=== PATIENT | female | born 1955 | race Caucasian/White ===

== ENCOUNTER 2021-08-27 16:01 | Inpatient (IN) | payer MEDICARE, MEDICAID ==
[~2021-08-27] VITALS: Ht 172.7 cm; Wt 128.8 kg
[2021-08-27] MEDS ORDERED: MORPHINE SULFATE 2 MG/ML INJ. IV/SQ PRN (16:30)
[2021-08-27] MEDS ORDERED: MORPHINE SULFATE 4 MG/ML INJ. IV/SQ PRN (16:30)
[2021-08-27 17:08] LABS: BARBITURATES NEG (NEG); BENZODIAZEPINES NEG (NEG); CANNABINOIDS NEG (NEG); COCAINE NEG (NEG); METHADONE NEG (NEG); OPIATES NEG (NEG); PHENCYCLIDINE NEG (NEG)
[2021-08-27 17:09] LABS: AMPHETAMINE/METHAMPHETAMINE NEG (NEG)
--- NOTE | 2021-08-27 17:15 | RAD ---
EXAM: Chest, single view. HISTORY: Fall. COMPARISON: 08/14/2021. FINDINGS: A frontal view of the chest is obtained. There are chronic appearing interstitial changes. There is cardiomegaly. There is no consolidation, pleural effusion or pneumothorax. IMPRESSION: Chronic appearing diffuse interstitial prominence and stable cardiomegaly. Electronically signed by: Corin Hussein MD (08/27/2021 5:12 PM) [id number]
[2021-08-27 17:26] LABS: BACTERIA,URINE FEW /HPF (0-FEW); YEAST,URINE PRESENT /HPF
[2021-08-27 17:32] LABS: BASO # 0.1 x10^3/uL (0.0-0.2); BASO % 0 % (0-3); EOS # 0.1 x10^3/uL (0.0-0.7); EOS % 1 % (0-3); HEMATOCRIT 41.6 % (36.0-47.0); HEMOGLOBIN 13.4 g/dL (12.0-15.5); LYMPH # 0.7 x10^3/uL (1.0-4.8); LYMPH % 4 % (24-48); MEAN CORPUSCULAR HEMOGLOBIN 27 pg (25-35); MEAN CORPUSCULAR HGB CONC 32 g/dL (31-37); MEAN CORPUSCULAR VOLUME 82 fL (79-100); MONO % 6 % (0-9); NEUT # 13.4 x10^3/uL (1.8-7.7); NEUT % 88 % (31-73); PLATELET COUNT 345 x10^3/uL (140-400); RED BLOOD COUNT 5.04 x10^6/uL (3.50-5.40); RED CELL DISTRIBUTION WIDTH 17.8 % (11.5-14.5); WHITE BLOOD COUNT 15.2 x10^3/uL (4.0-11.0)
[2021-08-27 17:43] LABS: PROTHROMBIN TIME PATIENT 16.3 SEC (11.7-14.0)
[2021-08-27 18:10] LABS: % LYMPHS 10 % (24-48); % MONOS 1 % (0-10); % SEGS 89 % (35-66)
[2021-08-27 18:12] LABS: PLT ESTIMATE ADEQUATE (ADEQUATE)
[2021-08-27 18:13] LABS: ANISOCYTOSIS SLIGHT; BURR CELLS PRESENT
[2021-08-27 19:45] LABS: CALCIUM 8.9 mg/dL (8.5-10.1); CREATININE 1.1 mg/dL (0.6-1.0); GFR 49.4; POTASSIUM 3.7 mmol/L (3.5-5.1)
[2021-08-27 19:53] LABS: ALBUMIN 1.8 g/dL (3.4-5.0); ALBUMIN/GLOBULIN RATIO 0.4 (1.0-1.7); MAGNESIUM 2.1 mg/dL (1.8-2.4); TOTAL BILIRUBIN 1.2 mg/dL (0.2-1.0); TOTAL PROTEIN 6.4 g/dL (6.4-8.2)
[2021-08-27] MEDS ORDERED: ONDANSETRON PF 4 MG/2 ML VIAL. IVP PRN ×2 (20:30)
[2021-08-27] MEDS ORDERED: IV NORMAL SALINE 1000ML BAG 1,000 ML IV ONE ×2 (20:30)
[2021-08-27] MEDS ORDERED: MORPHINE SULFATE 2 MG/ML INJ. IVP PRN (20:30)
[2021-08-27] MEDS ORDERED: ACETAMINOPHEN 325 MG TABLET. PO PRN (20:30)
[2021-08-27] MEDS ORDERED: fentaNYL PF VIAL 100 MCG/2 ML VIAL IVP PRN (20:30)
[2021-08-27] MEDS ORDERED: cefTRIAXone IV Push 1 GM VIAL. IVP ONE (21:00)
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
[2021-08-27 22:20] VITALS: BP 121/45
[2021-08-27] MEDS ORDERED: DEXTROSE 50% 25 GM / 50ML DISP.SYRIN. IV PRN (23:00)
[2021-08-27] MEDS ORDERED: VANCOMYCIN 1.75 GM in IV NORMAL SALINE 500ML BAG 500 ML IV ONE (23:15)
--- NOTE | 2021-08-27 23:28 | PDOC1 ---
History and Physical Date of Admission Date of Admission DATE: 08/27/21 TIME: 22:59 Identification/Chief Complaint Chief Complaint Unable to care for self Source Source: Chart review, Patient History of Present Illness History of Present Illness Ms Hester is a 66yo female with PMHx morbid obesity and progressive ambulatory difficulties and recent hospital stay with left hip wound and sacral wound who comes from her sister's home via EMS. Patient states she has been on the floor at her sisters house for 3 days unable to get up and defecated on herself and did not empty her hassan catheter bag. Per nursing staff a tick was removed from abdominal wall prior to my examination. No rash at bite site noted According to patient she recently moved from [place], [place] at the end of 2020, where she was being treated for above wounds at [facility] and notes she asked her sister to take her out of the SNF to stay with her in July and she was admitted, unable to care for herself and recommended SNF and returned home into the care of her sister Chest radiograph with mild interstitial opacities, CT head and neck with no acute hemorrhage, CT spine with no acute fractures. Labs with WBC 15.2, Hb 13.4, platelets 345, CK 866, Cr 1.1, albumin 1.8 Past Medical History Endocrine: Diabetes Past Surgical History Past Surgical History Significant for lymph node excision from the right side of the neck, benign Family History Family History: Hypertension Social History Smoke: No ALCOHOL: none Drugs: None Current Medications Current Medications Current Medications Morphine Sulfate (Morphine Sulfate) 4 mg PRN Q15MIN PRN IV/SQ PAIN GREATER THAN 3/10; Start 08/27/21 at 16:30; Stop 08/27/21 at 20:26; Status DC Morphine Sulfate (Morphine Sulfate) 2 mg PRN Q15MIN PRN IV/SQ PAIN GREATER THAN 3/10; Start 08/27/21 at 16:30; Stop 08/27/21 at 20:26; Status DC Ondansetron HCl (Zofran) 4 mg PRN Q4HRS PRN IVP NAUSEA/VOMITING; Start 08/27/21 at 20:30; Stop 08/27/21 at 20:25; Status DC Acetaminophen (Tylenol) 650 mg PRN Q6HRS PRN PO MILD PAIN / TEMP > 100.3'F; Start 08/27/21 at 20:30 Fentanyl Citrate (Fentanyl 2ml Vial) 25 mcg PRN Q3HRS PRN IVP SEVERE PAIN 7-10; Start 08/27/21 at 20:30 Tramadol HCl (Ultram) 50 mg PRN Q6HRS PRN PO MODERATE PAIN; Start 08/27/21 at 20:30 Ondansetron HCl (Zofran) 4 mg PRN Q8HRS PRN IVP NAUSEA/VOMITING; Start 08/27/21 at 20:30; Stop 08/28/21 at 20:29 Morphine Sulfate (Morphine Sulfate) 2 mg PRN Q2HR PRN IVP PAIN; Start 08/27/21 at 20:30; Stop 08/28/21 at 20:29 Acetaminophen (Tylenol) 650 mg PRN Q4HRS PRN PO FEVER > 100.3'F; Start 08/27/21 at 20:30; Stop 08/27/21 at 20:25; Status DC Ceftriaxone Sodium (Rocephin) 1 gm 1X ONCE IVP ; Start 08/27/21 at 21:00; Stop 08/27/21 at 21:01; Status DC Sodium Chloride 1,000 ml @ 1,000 mls/hr 1X ONCE IV ; Start 08/27/21 at 20:30; Stop 08/27/21 at 21:29; Status DC Sodium Chloride 1,000 ml @ 1,000 mls/hr 1X ONCE IV ; Start 08/27/21 at 20:30; Stop 08/27/21 at 21:29; Status DC Allergies Allergies: Coded Allergies: No Known Drug Allergies (Unverified , 08/27/21) ROS General: YES: Fatigue, Malaise; No: Chills, Night Sweats, Appetite, Other PSYCHOLOGICAL ROS: YES: Anxiety, Depression; No: Behavioral Disorder, Concentration difficultie, Decreased libido, Disorientation, Hallucinations, Hostility, Irritablity, Memory difficulties, Mood Swings, Obsessive thoughts, Physical abuse, Sexual abuse, Sleep d isturbances, Suicidal ideation, Other Eyes: No Blurry vision, No Decreased vision, No Double vision, No Dry eyes, No Excessive tearing, No Eye Pain, No Itchy Eyes, No Loss of vision, No Photophobia, No Scotomata, No Uses contacts, No Uses glasses, No Other HEENT: No: Heacaches, Visual Changes, Hearing change, Nasal congestion, Nasal discharge, Oral lesions, Sinus pain, Sore Throat, Epistaxis, Sneezing, Snoring, Tinnitus, Vertigo, Vocal changes, Other ALLERGY AND IMMUNOLOGY: No: Hives, Insect Bite Sensitivity, Itchy/Watery Eyes, Nasal Congestion, Post Nasal Drip, Seasonal Allergies, Other Hematological and Lymphatic: No: Bleeding Problems, Blood Clots, Blood Transfusions, Brusing, Night Sweats, Pallor, Swollen Lymph Nodes, Other ENDOCRINE: No: Breast Changes, Galactorrhea, Hair Pattern Changes, Hot Flashes, Malaise/lethargy, Mood Swings, Palpitations, Polydipsia/polyuria, Skin Changes, Temperature Intolerance, Unexpected Weight Changes, Other Breast: No New/Changing Breast Lumps, No Nipple changes, No Nipple discharge, No Other Respiratory: No: Cough, Hemoptysis, Orthopnea, Pleuritic Pain, Shortness of breath, SOB with excertion, Sputum Changes, Stridor, Tachypnea, Wheezing, Other Cardiovascular: No Chest Pain, No Palpitations, No Orthopnea, No Paroxysmal Noc. Dyspnea, No Edema, No Lt Headedness, No Other Gastrointestinal: No Nausea, No Vomiting, No Abdominal Pain, No Diarrhea, No Constipation, No Melena, No Hematochezia, No Other Genitourinary: No Dysuria, No Frequency, No Incontinence, No Hematuria, No Retention, No Discharge, No Urgency, No Pain, No Flank Pain, No Other, No , No , No , No , No , No , No Musculoskeletal: Yes Gait Disturbance, Yes Muscular Weakness; No Joint Pain, No Joint Stiffness, No Joint Swelling, No Muscle Pain, No Pain In:, No Swelling In:, No Other Neurological: No Behavorial Changes, No Bowel/Bladder ControlChng, No Confusion, No Dizziness, No Gait Disturbance, No Headaches, No Impaired Coord/balance, No Memory Loss, No Numbness/Tingling, No Seizures, No Speech Problems, No Tremors, No Visual Changes, No Weakness, No Other Skin: No Dry Skin, No Eczema, No Hair Changes, No Lumps, No Mole Changes, No Mottling, No Nail Changes, No Pruritus, No Rash, No Skin Lesion Changes, No Other, No Acne Physical Exam General: Alert, Oriented X3, Cooperative, mild distress HEENT: Atraumatic, PERRLA, EOMI, Mucous membr. moist/pink Lungs: Clear to auscultation, Normal air movement Heart: S1S2, RRR, no thrills, no rubs, no gallops, no murmurs Abdomen: Normal bowel sounds, Soft, No tenderness, No hepatosplenomegaly, No masses Extremities: No clubbing, No cyanosis Skin: Other (right leg some redness, not warm, left hip with ulcer and gluteal ulcer unstageable at least 8cm) Neuro: Normal tone, Cranial nerves 3-12 NL, Reflexes 2+ Psych/Mental Status: Other (Depressed) Vitals Vitals Vital Signs Date Time Temp Pulse Resp B/P (MAP) Pulse Ox O2 Delivery O2 Flow Rate FiO2 08/27/21 22:20 97.8 105 22 121/45 (70) 90 Nasal Cannula 2.0 97.8 Labs Labs Laboratory Tests Test 08/27/21 16:50 08/27/21 17:20 08/27/21 18:37 08/27/21 21:40 Urine Collection Type Unknown Urine Color (Auto) Yellow Urine Turbidity Clear Urine pH (Auto) 6.0 (<5.0-8.0) Urine Specific [place] 1.023 (1.000-1.030) Urine Protein (Auto) 50 mg/dL (Negative) Urine Glucose (Auto)(UA) Negative mg/dL (Negative) Urine Ketones (Auto) 40 mg/dL (Negative) Urine Blood (Auto) Small (Negative) Urine Nitrite Negative (Negative) Urine Bilirubin (Auto) Small (Negative) Urine Urobilinogen (Auto) 2 mg/dL (Normal) Urine Leukocyte Esterase (Auto) Small (Negative) Urine RBC 3-5 /HPF (0-2) Urine WBC 5-10 /HPF (0-4) Urine Squamous Epithelial Cells Few /LPF Urine Bacteria Few /HPF (0-FEW) Urine Mucus Slight /LPF Urine Yeast Present /HPF Urine Opiates Screen Neg (NEG) Urine Methadone Screen Neg (NEG) Urine Barbiturates Neg (NEG) Urine Phencyclidine Screen Neg (NEG) Urine Amphetamine/Methamphetamine Neg (NEG) Urine Benzodiazepines Screen Neg (NEG) Urine Cocaine Screen Neg (NEG) Urine Cannabinoids Screen Neg (NEG) Urine Ethyl Alcohol Neg (NEG) White Blood Count 15.2 x10^3/uL (4.0-11.0) Red Blood Count 5.04 x10^6/uL (3.50-5.40) Hemoglobin 13.4 g/dL (12.0-15.5) Hematocrit 41.6 % (36.0-47.0) Mean Corpuscular Volume 82 fL (79-100) Mean Corpuscular Hemoglobin 27 pg (25-35) Mean Corpuscular Hemoglobin Concent 32 g/dL (31-37) Red Cell Distribution Width 17.8 % (11.5-14.5) Platelet Count 345 x10^3/uL (140-400) Neutrophils (%) (Auto) 88 % (31-73) Lymphocytes (%) (Auto) 4 % (24-48) Monocytes (%) (Auto) 6 % (0-9) Eosinophils (%) (Auto) 1 % (0-3) Basophils (%) (Auto) 0 % (0-3) Neutrophils # (Auto) 13.4 x10^3/uL (1.8-7.7) Lymphocytes # (Auto) 0.7 x10^3/uL (1.0-4.8) Monocytes # (Auto) 1.0 x10^3/uL (0.0-1.1) Eosinophils # (Auto) 0.1 x10^3/uL (0.0-0.7) Basophils # (Auto) 0.1 x10^3/uL (0.0-0.2) Segmented Neutrophils % 89 % (35-66) Lymphocytes % 10 % (24-48) Monocytes % 1 % (0-10) Platelet Estimate Adequate (ADEQUATE) Anisocytosis Slight [place] Cells Present Prothrombin Time 16.3 SEC (11.7-14.0) Prothromb Time International Ratio 1.4 (0.8-1.1) Activated Partial Thromboplast Time 34 SEC (24-38) Lactic Acid Level 1.4 mmol/L (0.4-2.0) Sodium Level 143 mmol/L (136-145) Potassium Level 3.7 mmol/L (3.5-5.1) Chloride Level 104 mmol/L (98-107) Carbon Dioxide Level 30 mmol/L (21-32) Anion Gap 9 (6-14) Blood Urea Nitrogen 25 mg/dL (7-20) Creatinine 1.1 mg/dL (0.6-1.0) Estimated GFR (Cockcroft-Gault) 49.4 BUN/Creatinine Ratio 23 (6-20) Glucose Level 158 mg/dL (70-99) Calcium Level 8.9 mg/dL (8.5-10.1) Magnesium Level 2.1 mg/dL (1.8-2.4) Total Bilirubin 1.2 mg/dL (0.2-1.0) Aspartate Amino Transf (AST/SGOT) 48 U/L (15-37) Alanine Aminotransferase (ALT/SGPT) 25 U/L (14-59) Alkaline Phosphatase 98 U/L (46-116) Creatine Kinase 866 U/L (26-192) Creatine Kinase MB (Mass) 5.3 ng/mL (0.0-3.6) Creatine Kinase MB Relative Index 0.6 % (0-4) Troponin I High Sensitivity 20 ng/L (4-50) 21 ng/L (4-50) LX-[id number]-W-Type Natriuretic Peptide 1332 pg/mL (0-124) Total Protein 6.4 g/dL (6.4-8.2) Albumin 1.8 g/dL (3.4-5.0) Albumin/Globulin Ratio 0.4 (1.0-1.7) Procalcitonin 0.30 ng/mL (0.00-0.10) Laboratory Tests Test 08/27/21 16:50 08/27/21 17:20 08/27/21 18:37 08/27/21 21:40 Urine Collection Type Unknown Urine Color (Auto) Yellow Urine Turbidity Clear Urine pH (Auto) 6.0 (<5.0-8.0) Urine Specific [place] 1.023 (1.000-1.030) Urine Protein (Auto) 50 mg/dL (Negative) Urine Glucose (Auto)(UA) Negative mg/dL (Negative) Urine Ketones (Auto) 40 mg/dL (Negative) Urine Blood (Auto) Small (Negative) Urine Nitrite Negative (Negative) Urine Bilirubin (Auto) Small (Negative) Urine Urobilinogen (Auto) 2 mg/dL (Normal) Urine Leukocyte Esterase (Auto) Small (Negative) Urine RBC 3-5 /HPF (0-2) Urine WBC 5-10 /HPF (0-4) Urine Squamous Epithelial Cells Few /LPF Urine Bacteria Few /HPF (0-FEW) Urine Mucus Slight /LPF Urine Yeast Present /HPF Urine Opiates Screen Neg (NEG) Urine Methadone Screen Neg (NEG) Urine Barbiturates Neg (NEG) Urine Phencyclidine Screen Neg (NEG) Urine Amphetamine/Methamphetamine Neg (NEG) Urine Benzodiazepines Screen Neg (NEG) Urine Cocaine Screen Neg (NEG) Urine Cannabinoids Screen Neg (NEG) Urine Ethyl Alcohol Neg (NEG) White Blood Count 15.2 x10^3/uL (4.0-11.0) Red Blood Count 5.04 x10^6/uL (3.50-5.40) Hemoglobin 13.4 g/dL (12.0-15.5) Hematocrit 41.6 % (36.0-47.0) Mean Corpuscular Volume 82 fL (79-100) Mean Corpuscular Hemoglobin 27 pg (25-35) Mean Corpuscular Hemoglobin Concent 32 g/dL (31-37) Red Cell Distribution Width 17.8 % (11.5-14.5) Platelet Count 345 x10^3/uL (140-400) Neutrophils (%) (Auto) 88 % (31-73) Lymphocytes (%) (Auto) 4 % (24-48) Monocytes (%) (Auto) 6 % (0-9) Eosinophils (%) (Auto) 1 % (0-3) Basophils (%) (Auto) 0 % (0-3) Neutrophils # (Auto) 13.4 x10^3/uL (1.8-7.7) Lymphocytes # (Auto) 0.7 x10^3/uL (1.0-4.8) Monocytes # (Auto) 1.0 x10^3/uL (0.0-1.1) Eosinophils # (Auto) 0.1 x10^3/uL (0.0-0.7) Basophils # (Auto) 0.1 x10^3/uL (0.0-0.2) Segmented Neutrophils % 89 % (35-66) Lymphocytes % 10 % (24-48) Monocytes % 1 % (0-10) Platelet Estimate Adequate (ADEQUATE) Anisocytosis Slight [place] Cells Present Prothrombin Time 16.3 SEC (11.7-14.0) Prothromb Time International Ratio 1.4 (0.8-1.1) Activated Partial Thromboplast Time 34 SEC (24-38) Lactic Acid Level 1.4 mmol/L (0.4-2.0) Sodium Level 143 mmol/L (136-145) Potassium Level 3.7 mmol/L (3.5-5.1) Chloride Level 104 mmol/L (98-107) Carbon Dioxide Level 30 mmol/L (21-32) Anion Gap 9 (6-14) Blood Urea Nitrogen 25 mg/dL (7-20) Creatinine 1.1 mg/dL (0.6-1.0) Estimated GFR (Cockcroft-Gault) 49.4 BUN/Creatinine Ratio 23 (6-20) Glucose Level 158 mg/dL (70-99) Calcium Level 8.9 mg/dL (8.5-10.1) Magnesium Level 2.1 mg/dL (1.8-2.4) Total Bilirubin 1.2 mg/dL (0.2-1.0) Aspartate Amino Transf (AST/SGOT) 48 U/L (15-37) Alanine Aminotransferase (ALT/SGPT) 25 U/L (14-59) Alkaline Phosphatase 98 U/L (46-116) Creatine Kinase 866 U/L (26-192) Creatine Kinase MB (Mass) 5.3 ng/mL (0.0-3.6) Creatine Kinase MB Relative Index 0.6 % (0-4) Troponin I High Sensitivity 20 ng/L (4-50) 21 ng/L (4-50) WC-Fyh-P-Type Natriuretic Peptide 1332 pg/mL (0-124) Total Protein 6.4 g/dL (6.4-8.2) Albumin 1.8 g/dL (3.4-5.0) Albumin/Globulin Ratio 0.4 (1.0-1.7) Procalcitonin 0.30 ng/mL (0.00-0.10) VTE Prophylaxis Ordered VTE Prophylaxis Devices: No VTE Pharmacological Prophylaxi: Yes Assessment/Plan Assessment/Plan Unable to walk - could not get up off floor Unable to care for self - cannot meet basic toileting needs. Counseled that return to SNF for rehabilitation is appropriate Gluteal ulcer - will consult the wound care team. Will place on unasyn, vancomycin, f/u cultures Chronic indwelling hassan - replace. Should keep in place given the extent of her wounds and her self described incontinence when she does not have a catheter SIRS - with above likely source of sepsis, will cont empiric antibiotics Severe protein calorie malnutrition - may have some element of liver injury due to malnourishment Morbid obesity - due to physical deconditioning. Patient denies any history of MS or other comorbidities Transaminitis - with elevated INR, low albumin may have NAFLD/BOOTHE Hyperglycemia - previously given insulin, will check A1c. FEN - ADA diet PPX - lovenox FULL CODE Dispo - needs SNF, likely 11/11 care Justifications for Admission Other Justification TAZ CONTRERAS MD August 27, 2021 23:28
[2021-08-27] MEDS ORDERED: VANCOMYCIN 2 GM in IV NORMAL SALINE 500ML BAG 500 ML IV ONE (23:30)
[2021-08-27] MEDS: AMPICILLIN/SULBACTAM 3 GM in IV NORMAL SALINE 100ML 100 ML IV SCH (23:35)
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
[2021-08-28 02:53] LABS: BASO % 1 % (0-3); EOS # 0.2 x10^3/uL (0.0-0.7); EOS % 2 % (0-3); HEMATOCRIT 36.9 % (36.0-47.0); HEMOGLOBIN 11.7 g/dL (12.0-15.5); LYMPH # 0.8 x10^3/uL (1.0-4.8); LYMPH % 8 % (24-48); MEAN CORPUSCULAR HEMOGLOBIN 26 pg (25-35); MEAN CORPUSCULAR HGB CONC 32 g/dL (31-37); MEAN CORPUSCULAR VOLUME 83 fL (79-100); MONO # 0.7 x10^3/uL (0.0-1.1); MONO % 7 % (0-9); NEUT # 8.3 x10^3/uL (1.8-7.7); NEUT % 83 % (31-73); PLATELET COUNT 284 x10^3/uL (140-400); RED BLOOD COUNT 4.46 x10^6/uL (3.50-5.40); RED CELL DISTRIBUTION WIDTH 17.3 % (11.5-14.5)
[2021-08-28] MEDS: VANCOMYCIN PER PHARMACY MC PRN ×2 (02:56→11:17)
--- NOTE | 2021-08-28 02:56 | NUR ---
Pharmacy Vancomycin Dosing Note S:Consulted to monitor and dose vancomycin started 08/28/21. O:ISABELLA OCAMPO is a 66 year old F with Sepsis UTI GLUTEAL ULCER . Height: 5 feet, 8 inches Weight: 129.2 kg [place] Body Weight: 63.90 Adjusted Body Weight: 90.02 Dosing Weight: Actual Other Antibiotics: LABS: Last BUN: 25 Last Creatinine: 1.1 Creatinine Clearance: 69 mL/min Last WBC: 15.2 Last Procalcitonin: Tmax (past 24 hours): Microbiology: I/O: Drug Levels: Last level: on at Last dose given 08/28/21 at 0140 Vancomycin Dosing: Loading Dose: 2000 mg x1 Dosing Weight: Actual Target Trough: 15-20 A: Based on: WT AND CRCL P: 1. Begin Vancomycin 1750 mg IV q12h 2. Follow up Trough level on 08/29/21 at 1330 3. Pharmacy will continue to monitor, follow and adjust therapy as needed. IVON CASTILLO RPH, 08/28/21 0256 Signed: 08/28/21 at 0256 by IVON CASTILLO RPH PHA
[2021-08-28 03:00] VITALS: BP 113/46
[2021-08-28 03:11] LABS: ALBUMIN 1.6 g/dL (3.4-5.0); ALBUMIN/GLOBULIN RATIO 0.5 (1.0-1.7); CALCIUM 7.9 mg/dL (8.5-10.1); GFR 55.1; POTASSIUM 3.5 mmol/L (3.5-5.1); TOTAL BILIRUBIN 1.1 mg/dL (0.2-1.0); TOTAL PROTEIN 4.9 g/dL (6.4-8.2)
[2021-08-28] MEDS: AMPICILLIN/SULBACTAM 3 GM in IV NORMAL SALINE 100ML 100 ML IV SCH ×3 (06:05→19:32)
[2021-08-28] MEDS: HEPARIN for SUB-Q USE 5,000 UNIT/ML VIAL. SQ SCH ×3 (06:10→21:43)
[2021-08-28 07:15] VITALS: BP 109/71
[2021-08-28] MEDS: INSULIN LISPRO 300 UNITS/3 ML VIAL. SQ SCH ×4 (07:30→21:00)
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
--- NOTE | 2021-08-28 10:00 | NUR ---
Received nettie from Herlinda Goel with [employer], calling for report on patient and possible discharge. This RN advised Herlinda that DC arrangements have not yet been finalized, but that patient has voiced desire to go home to [facility] with her daughter, and that patient reports feeling fine today, is in good spirits and denies pain. Advised Herlinda that planner internship will be in touch as discharge plans progress. Herlinda voiced understanding.
[2021-08-28 11:15] VITALS: BP 97/44
--- NOTE | 2021-08-28 12:22 | EKG ---
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
--- NOTE | 2021-08-28 12:22 | RAD ---
Exam: CT thoracic spine without contrast CT lumbar spine without contrast CLINICAL HISTORY: Reason: fall / Spl. Instructions: / History: COMPARISON: None available. TECHNIQUE: This CT study consists of contiguous axial images performed through the thoracic and lumba r spine. Axial, sagittal and coronal reformatted images were also performed. PQRS compliance statement - One or more of the following individualized dose reduction techniques wer e utilized for this study: 1. Automated exposure control 2. Adjustment of the mA and/or kV according to patient size 3. Use of iterative reconstruction technique FINDINGS: Thoracic spine: Vertebral body heights are preserved. Anterior endplate osteophytes at multiple levels. Disc heights are grossly preserved. No spondylolisthesis. Bulky endplate osteophytes are seen. Evaluation of the lungs limited given motion artifact. Lumbar spine: Vertebral body heights are preserved. Disc heights are preserved. No spondylolisthesis. SI joint dege nerative changes are seen. Nonobstructing left renal calculi are partially profiled. Chadwick catheter i s seen within the bladder. No acute fracture. Colonic diverticula are seen. IMPRESSION: 1. No evidence of no acute fracture or subluxation of the thoracic or lumbar spine. 2. Nonobstructing left renal calculi are seen. Electronically signed by: Tom Polk MD (08/27/2021 7:24 PM) YUDY
--- NOTE | 2021-08-28 12:22 | EKG ---
[facility] [address] [place] [address] Test Date: 2021-08-27 Test Time: 17:27:11 Pat Name: ISABELLA OCAMPO Department: Room: [facility] Gender: F Sourcing Intern: : 1955 Requested By: ELENA CAMACHO Order Number: [id number] Reading MD: Parvez Lozada Measurements Intervals [place] Rate: 98 P: 58 PA: 114 QRS: 59 QRSD: 96 T: 26 QT: 360 QTc: 462 Interpretive Statements SINUS RHYTHM ATRIAL PREMATURE COMPLEX(ES) Electronically Signed On 08-29-2021 17:15:04 CDT by Parvez Lozada
--- NOTE | 2021-08-28 12:22 | RAD ---
EXAM: CT HEAD WITHOUT IV CONTRAST CLINICAL HISTORY: Reason: fall / Spl. Instructions: / History: COMPARISON: None. TECHNIQUE: Routine CT of the head without contrast. Soft tissues and bone windows were reviewed. PQRS compliance statement - One or more of the following individualized dose reduction techniques wer e utilized for this study: 1. Automated exposure control 2. Adjustment of the mA and/or kV according to patient size 3. Use of iterative reconstruction technique FINDINGS: There is no evidence of hemorrhage, mass or extra-axial fluid collection. Sears-white differentiation is maintained with no evidence of edema. Rounded lucency right basal gangl ia, possibly prior lacunar infarct or prominent perivascular space. There is no mass effect or shift of the intracranial structures. The ventricles, basilar cisterns and cortical sulci are normal in size and configuration for the brenda ents stated age. Subcortical, periventricular as well as deep white matter foci of hypoattenuation li néstor changes of chronic small vessel disease. The cerebellum and brainstem are unremarkable. The calvarium demonstrates no evidence of fracture or focal lesion. There is normal aeration of the visualized paranasal sinuses and mastoid air cells. The visualized portions of the orbits are normal. IMPRESSION: 1. No evidence for acute intracranial process. 2. Rounded lucency right basal ganglia, possibly prior lacunar infarct or prominent perivascular spa ce. 3. Subcortical, periventricular white matter foci of hypoattenuation likely changes of chronic small vessel disease. EXAM: CT CERVICAL SPINE WITHOUT IV CONTRAST CLINICAL HISTORY: Reason: fall / Spl. Instructions: / History: COMPARISON: None available. TECHNIQUE: Helical CT of the cervical spine was performed. Axial, coronal and sagittal reformatted im ages were also performed. PQRS compliance statement - One or more of the following individualized dose reduction techniques wer e utilized for this study: 1. Automated exposure control 2. Adjustment of the mA and/or kV according to patient size 3. Use of iterative reconstruction technique FINDINGS: Vertebral body heights are preserved. No acute fracture. Mild C5-6, moderate C6-7 and C7-T1 disc heig ht loss. Moderate facet degenerative changes are seen. No spondylolisthesis. Lucent lesion within the sternum is only partially profiled, partially trabeculated. IMPRESSION: 1. No acute cervical spine fracture or subluxation. 2. Multilevel degenerative changes as above. 3. Lucent lesion within the sternum is trabeculated and only partially profiled, may be seen with he mangioma. However if there is a history of primary malignancy, metastatic disease is not excluded. Th is can be further assessed by MRI if clinically indicated. Electronically signed by: Tom Polk MD (08/27/2021 7:13 PM) [facility]
[2021-08-28] MEDS ORDERED: VANCOMYCIN 1.75 GM in IV NORMAL SALINE 500ML BAG 500 ML IV SCH ×2 (14:00→20:00)
[2021-08-28 14:55] VITALS: BP 122/62
[2021-08-28] MEDS: MICAFUNGIN 100 MG in IV NORMAL SALINE 100ML 100 ML IV SCH (17:45)
[2021-08-28 19:25] VITALS: BP 121/50
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
[2021-08-28] MEDS: LACTOBACILLUS RHAMNOSUS GG 1 CAPSULE. PO SCH (21:39)
[2021-08-28 23:13] VITALS: BP 102/53
[2021-08-29] MEDS: AMPICILLIN/SULBACTAM 3 GM in IV NORMAL SALINE 100ML 100 ML IV SCH ×5 (00:45→23:42)
[2021-08-29 03:01] VITALS: BP 106/55
[2021-08-29 05:37] LABS: HEMOGLOBIN A1C 7.3 % (4.8-5.6)
[2021-08-29] MEDS: HEPARIN for SUB-Q USE 5,000 UNIT/ML VIAL. SQ SCH ×3 (06:13→21:34)
[2021-08-29 07:00] VITALS: BP 151/66
[2021-08-29] MEDS: INSULIN LISPRO 300 UNITS/3 ML VIAL. SQ SCH ×4 (07:30→21:00)
[2021-08-29] MEDS: MULTIVITAMIN with MINERAL TABLET. PO SCH (09:00)
[2021-08-29] MEDS: LACTOBACILLUS RHAMNOSUS GG 1 CAPSULE. PO SCH ×2 (09:00→21:31)
[2021-08-29 11:00] VITALS: BP 156/53
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
[2021-08-29] MEDS: ACETAMINOPHEN 325 MG TABLET. PO PRN (11:04)
--- NOTE | 2021-08-29 13:39 | NUR ---
CHUY Sullivan and Dr. Lieberman at bedside to do wound care.
[2021-08-29 13:40] LABS: VANC TR 21.2 mcg/mL (10.0-20.0)
[2021-08-29] MEDS: VANCOMYCIN PER PHARMACY MC PRN (13:57)
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
--- NOTE | 2021-08-29 14:27 | PDOC ---
Infectious Disease Note Subjective: Subjective Patient denies any complaints Wound pain has improved Underwent debridement earlier today Denies any fever, chills, nausea, vomiting, shortness of breath or cough Discussed with nursing staff Vital Signs: Vital Signs Vital Signs Date Time Temp Pulse Resp B/P (MAP) Pulse Ox O2 Delivery O2 Flow Rate FiO2 08/29/21 13:37 Nasal Cannula 2.0 08/29/21 11:00 98.2 68 19 156/53 (87) 92 98.2 Physical Exam: PHYSICAL EXAM GENERAL: Alert, oriented x 3 female, on nasal O2, in no acute distress. HEENT: Normocephalic, atraumatic. Anicteric. LUNGS: Clear. HEART: S1, S2. No murmurs. ABDOMEN: Soft, obese. Bowel sounds present. EXTREMITIES: Redness, excoriation, left hip previous wound well healed. Left gluteal ulcer, unstageable with black eschar, tenderness present. Lower extremity wounds pictures reviewed. NEUROLOGIC: Alert, oriented x 3, grossly nonfocal. Generalized weakness. PSYCHIATRIC: Depressed, not anxious, calm, cooperative. Medications: Inpatient Meds: Medications reviewed. Labs: Lab Laboratory Tests Test 08/28/21 16:56 08/28/21 21:26 08/29/21 07:37 08/29/21 11:03 Glucose (Fingerstick) 97 mg/dL (70-99) 185 mg/dL (70-99) 125 mg/dL (70-99) 186 mg/dL (70-99) Test 08/29/21 13:15 Vancomycin Level Trough 21.2 mcg/mL (10.0-20.0) Vancomycin Last Dose Date 08/29/21 Vancomycin Last Dose Time 0500 Objective: Assessment: 1. Gluteal ulcer likely pressure from inability to get off the floor for 3 days prior to admission, status postdebridement by wound team August 29, 2021 2. Increased CK. Likely from laying on the floor 3 days prior to admission 3. Healed left hip wound 4. Chronic indwelling Chadwick changed with urinary tract infection. 5. The patient had a tick when she arrived to the hospital, which was removed. 6. Obesity. 7. Transaminitis. 8. Diabetes. 9. Protein-calorie malnutrition. 10. Poor living condition. 11. Leukocytosis. Plan: Plan of Care Continue Unasyn,Zyvox,micafungin DC IV Vanco due to high trough She does not have any evidence of tickborne illness at this time clinically Offload. Wound care as directed by wound team. Monitor labs and cultures. Continue supportive care. PIPPA HICKS MD August 29, 2021 14:27
[2021-08-29 15:00] VITALS: BP 140/60
--- NOTE | 2021-08-29 16:52 | NUR ---
Wound/Ostomy Care Wound Type/Assessment: Patient seen per wound care consult. see wound assessment. Patient was seen yesterday for initial assessment. All wounds cleansed, assessed, and measured. Patient had been staying with her sister and had been found at home on the floor for over 3 days. This information has been from the patient only, however due to what has been physically seen and assessed this does coincide with what the patient has stated. The wounds dressed on 08/28/21, see treatment recommendations below. The Patient seen again to today with our consulting physician Dr. Lieberman for assessment and possible bedside debridement if needed of only the left ischium. Wound blackened with soften eschar but appears to be stable, there is a large area of IAD due to urine. Patient agreeable. Patient has an unstageable PU to left ischium, stage I PU with IAD to coccyx/sacral, DTI to left heel and left lower leg, intertrigo to left breasts, and DTI with IAD to the right ischium. Treatment Recommendations/Plan: Dr. Lieberman ordered for Santyl however as of today Santyl is unavailable but pharmacy is going to try to get the Santyl. If unable we will switch back to honey tomorrow and let our physician know, as well as the nurses. Cleanse wounds and pat dry. L ischium: apply medi-honey gel to the contact layer, cover with foam dressing and tape and hydrocolloids around the edge if skin is still broke down. L lat heel and L leg: skin prep and foam dressing. R ischium, sacrum, coccyx: "crusting" skin prep and nystatin powder to area of breakdown Education provided: Patient educated on dressing changes and PU treatment and management. Patient verbalized understanding Offloading surface/device: Patient is currently on a P-500 bed, turn every two hours using wedge. Patient repositioned to left side using wedge. Recommended Referrals/Tests: Wound care and ID following. Dr. Lieberman our wound care physician will follow up on 09/03/21 for reassessment. Discharge Recommendations for dressings: Continue current treatment plan and wound care will follow up on 09/03/21. I will check with pharmacy tomorrow regarding the Santyl situation. Bed lowered and call light in reach. Addendum: 08/29/21 at 1736 by SURY ERNST RN Spoke with Keith in the pharmacy. Tube of Santyl available, manually entered by pharmacist for use starting 08/30/21
[2021-08-29] MEDS: NYSTATIN TOPICAL POWDER 15GM BOTTLE. TP SCH (17:00)
--- NOTE | 2021-08-29 17:05 | NUR ---
Nystatin not applied, wound care had applied.
[2021-08-29] MEDS: MICAFUNGIN 100 MG in IV NORMAL SALINE 100ML 100 ML IV SCH (17:22)
[2021-08-29] MEDS ORDERED: VANCOMYCIN 1.75 GM in IV NORMAL SALINE 500ML BAG 500 ML IV SCH (18:00)
[2021-08-29 19:00] VITALS: BP 139/60
[2021-08-29] MEDS: LINEZOLID 600 MG TABLET PO SCH (21:31)
[2021-08-29 23:00] VITALS: BP 147/64
[2021-08-30 03:00] VITALS: BP 142/61
[2021-08-30] MEDS: AMPICILLIN/SULBACTAM 3 GM in IV NORMAL SALINE 100ML 100 ML IV SCH ×3 (05:37→17:49)
[2021-08-30] MEDS: HEPARIN for SUB-Q USE 5,000 UNIT/ML VIAL. SQ SCH ×3 (05:55→21:54)
[2021-08-30 07:00] VITALS: BP 126/62
[2021-08-30] MEDS: INSULIN LISPRO 300 UNITS/3 ML VIAL. SQ SCH ×4 (07:30→21:00)
[2021-08-30] MEDS: NYSTATIN TOPICAL POWDER 15GM BOTTLE. TP SCH ×2 (09:29→21:00)
[2021-08-30] MEDS: COLLAGENASE 250 UNIT/GM TOPICAL OINTMENT 30GM TUBE. TP SCH (09:29)
[2021-08-30] MEDS: LACTOBACILLUS RHAMNOSUS GG 1 CAPSULE. PO SCH ×2 (09:29→21:47)
[2021-08-30] MEDS: MULTIVITAMIN with MINERAL TABLET. PO SCH (09:29)
[2021-08-30] MEDS: LINEZOLID 600 MG TABLET PO SCH ×2 (09:29→21:47)
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
[2021-08-30 11:00] VITALS: BP 115/51
[2021-08-30 15:00] VITALS: BP 131/52
--- NOTE | 2021-08-30 15:06 | PDOC ---
Infectious Disease Note Subjective: Subjective Patient complains of pain around wounds Vital Signs: Vital Signs Vital Signs Date Time Temp Pulse Resp B/P (MAP) Pulse Ox O2 Delivery O2 Flow Rate FiO2 08/30/21 11:00 98.1 77 18 115/51 (72) 93 Room Air 98.1 08/30/21 08:00 2.0 Physical Exam: PHYSICAL EXAM GENERAL: Alert, oriented x 3 female, on nasal O2, in no acute distress. HEENT: Normocephalic, atraumatic. Anicteric. LUNGS: Clear. HEART: S1, S2. No murmurs. ABDOMEN: Soft, obese. Bowel sounds present. EXTREMITIES: Redness, excoriation, left hip previous wound well healed. Left gluteal ulcer, unstageable with black eschar, tenderness present. Lower extremity wounds pictures reviewed. NEUROLOGIC: Alert, oriented x 3, grossly nonfocal. Generalized weakness. PSYCHIATRIC: Depressed, not anxious, calm, cooperative. Medications: Inpatient Meds: Medications reviewed. Labs: Lab Laboratory Tests Test 08/29/21 15:58 08/29/21 20:59 08/30/21 07:42 08/30/21 11:31 Glucose (Fingerstick) 133 mg/dL (70-99) 173 mg/dL (70-99) 132 mg/dL (70-99) 121 mg/dL (70-99) Objective: Assessment: 1. Gluteal ulcer likely pressure from inability to get off the floor for 3 days prior to admission, status postdebridement by wound team August 29, 2021 2. Increased CK. Likely from laying on the floor 3 days prior to admission 3. Healed left hip wound 4. Chronic indwelling Chadwick changed with urinary tract infection. 5. The patient had a tick when she arrived to the hospital, which was removed. 6. Obesity. 7. Transaminitis. 8. Diabetes. 9. Protein-calorie malnutrition. 10. Poor living condition. 11. Leukocytosis. Plan: Plan of Care Continue Unasyn,Zyvox,micafungin DC IV Vanco due to high trough She does not have any evidence of tickborne illness at this time clinically Offload. Wound care as directed by wound team. Monitor labs and cultures. Continue supportive care. PIPPA HICKS MD August 30, 2021 15:06
[2021-08-30] MEDS: MICAFUNGIN 100 MG in IV NORMAL SALINE 100ML 100 ML IV SCH (17:49)
[2021-08-30 19:00] VITALS: BP 143/65
[2021-08-30 23:00] VITALS: BP 136/67
[2021-08-31] MEDS: AMPICILLIN/SULBACTAM 3 GM in IV NORMAL SALINE 100ML 100 ML IV SCH ×4 (00:15→18:00)
[2021-08-31 03:00] VITALS: BP 143/84
[2021-08-31] MEDS: HEPARIN for SUB-Q USE 5,000 UNIT/ML VIAL. SQ SCH ×3 (05:44→22:30)
[2021-08-31 07:00] VITALS: BP 142/60
[2021-08-31] MEDS: INSULIN LISPRO 300 UNITS/3 ML VIAL. SQ SCH ×4 (07:30→21:00)
[2021-08-31] MEDS: NYSTATIN TOPICAL POWDER 15GM BOTTLE. TP SCH ×2 (09:00→21:00)
[2021-08-31] MEDS: COLLAGENASE 250 UNIT/GM TOPICAL OINTMENT 30GM TUBE. TP SCH (09:00)
[2021-08-31] MEDS: MULTIVITAMIN with MINERAL TABLET. PO SCH (09:02)
[2021-08-31] MEDS: LACTOBACILLUS RHAMNOSUS GG 1 CAPSULE. PO SCH ×2 (09:02→20:58)
[2021-08-31] MEDS: LINEZOLID 600 MG TABLET PO SCH ×2 (09:02→20:58)
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
[2021-08-31 11:00] VITALS: BP_SYST 130; BP_SYST 138; BP_DIAS 54; BP_DIAS 72
--- NOTE | 2021-08-31 12:06 | PDOC ---
Infectious Disease Note Subjective: Subjective Patient complains of pain around wounds Vital Signs: Vital Signs Vital Signs Date Time Temp Pulse Resp B/P (MAP) Pulse Ox O2 Delivery O2 Flow Rate FiO2 08/31/21 11:00 97.8 77 18 130/54 (79) 93 Nasal Cannula 2.0 97.8 Physical Exam: PHYSICAL EXAM GENERAL: Alert, oriented x 3 female, on nasal O2, in no acute distress. HEENT: Normocephalic, atraumatic. Anicteric. LUNGS: Clear. HEART: S1, S2. No murmurs. ABDOMEN: Soft, obese. Bowel sounds present. EXTREMITIES: Redness, excoriation, left hip previous wound well healed. Left gluteal ulcer, unstageable with black eschar, tenderness present. Lower extremity wounds pictures reviewed. NEUROLOGIC: Alert, oriented x 3, grossly nonfocal. Generalized weakness. PSYCHIATRIC: Depressed, not anxious, calm, cooperative. Medications: Inpatient Meds: Medications reviewed. Labs: Lab Laboratory Tests Test 08/30/21 17:33 08/30/21 20:44 08/31/21 08:01 08/31/21 11:38 Glucose (Fingerstick) 144 mg/dL (70-99) 165 mg/dL (70-99) 133 mg/dL (70-99) 129 mg/dL (70-99) Objective: Assessment: 1. Gluteal ulcer likely pressure from inability to get off the floor for 3 days prior to admission, status postdebridement by wound team August 29, 2021 2. Increased CK. Likely from laying on the floor 3 days prior to admission 3. Healed left hip wound 4. Chronic indwelling Chadwick changed with urinary tract infection. 5. The patient had a tick when she arrived to the hospital, which was removed. 6. Obesity. 7. Transaminitis. 8. Diabetes. 9. Protein-calorie malnutrition. 10. Poor living condition. 11. Leukocytosis. Plan: Plan of Care Continue Unasyn,Zyvox,micafungin DC IV Vanco due to high trough She does not have any evidence of tickborne illness at this time clinically Offload. Wound care as directed by wound team. Monitor labs and cultures. Continue supportive care. PIPPA HICKS MD August 31, 2021 12:06
[2021-08-31 15:00] VITALS: BP 143/62
[2021-08-31] MEDS: MICAFUNGIN 100 MG in IV DEXTROSE 5% 100ML 100 ML IV SCH (17:36)
[2021-08-31 19:00] VITALS: BP 157/60
[2021-08-31 23:00] VITALS: BP 163/67
[2021-09-01] MEDS: AMPICILLIN/SULBACTAM 3 GM in IV NORMAL SALINE 100ML 100 ML IV SCH ×4 (00:29→18:00)
[2021-09-01 03:00] VITALS: BP 119/58
[2021-09-01] MEDS: HEPARIN for SUB-Q USE 5,000 UNIT/ML VIAL. SQ SCH ×3 (05:34→21:51)
[2021-09-01 07:00] VITALS: BP 147/49
[2021-09-01] MEDS: INSULIN LISPRO 300 UNITS/3 ML VIAL. SQ SCH ×4 (07:30→21:00)
[2021-09-01 07:57] LABS: BASO % 0 % (0-3); EOS # 0.4 x10^3/uL (0.0-0.7); EOS % 6 % (0-3); HEMOGLOBIN 11.5 g/dL (12.0-15.5); LYMPH # 0.6 x10^3/uL (1.0-4.8); LYMPH % 8 % (24-48); MEAN CORPUSCULAR HEMOGLOBIN 26 pg (25-35); MEAN CORPUSCULAR HGB CONC 31 g/dL (31-37); MEAN CORPUSCULAR VOLUME 85 fL (79-100); MONO # 0.5 x10^3/uL (0.0-1.1); MONO % 6 % (0-9); NEUT # 6.4 x10^3/uL (1.8-7.7); NEUT % 81 % (31-73); PLATELET COUNT 249 x10^3/uL (140-400); RED BLOOD COUNT 4.37 x10^6/uL (3.50-5.40); RED CELL DISTRIBUTION WIDTH 17.5 % (11.5-14.5); WHITE BLOOD COUNT 7.9 x10^3/uL (4.0-11.0)
[2021-09-01 08:10] LABS: ALBUMIN 1.6 g/dL (3.4-5.0); ALBUMIN/GLOBULIN RATIO 0.4 (1.0-1.7); CALCIUM 8.2 mg/dL (8.5-10.1); CREATININE 0.9 mg/dL (0.6-1.0); GFR 62.3; POTASSIUM 3.9 mmol/L (3.5-5.1); TOTAL BILIRUBIN 0.5 mg/dL (0.2-1.0); TOTAL PROTEIN 5.7 g/dL (6.4-8.2)
[2021-09-01] MEDS: COLLAGENASE 250 UNIT/GM TOPICAL OINTMENT 30GM TUBE. TP SCH (09:00)
[2021-09-01] MEDS: NYSTATIN TOPICAL POWDER 15GM BOTTLE. TP SCH ×2 (09:00→21:50)
[2021-09-01] MEDS: MULTIVITAMIN with MINERAL TABLET. PO SCH (10:29)
[2021-09-01] MEDS: LACTOBACILLUS RHAMNOSUS GG 1 CAPSULE. PO SCH ×2 (10:29→21:48)
[2021-09-01] MEDS: LINEZOLID 600 MG TABLET PO SCH ×2 (10:29→21:48)
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
[2021-09-01 11:00] VITALS: BP 134/31
[2021-09-01 15:00] VITALS: BP 139/82
[2021-09-01] MEDS: MICAFUNGIN 100 MG in IV DEXTROSE 5% 100ML 100 ML IV SCH (17:44)
[2021-09-01 19:30] VITALS: BP 144/58
[2021-09-01 23:19] VITALS: BP 130/59
[2021-09-02] MEDS: AMPICILLIN/SULBACTAM 3 GM in IV NORMAL SALINE 100ML 100 ML IV SCH ×5 (00:09→19:26)
[2021-09-02 02:56] VITALS: BP 146/62
[2021-09-02] MEDS: HEPARIN for SUB-Q USE 5,000 UNIT/ML VIAL. SQ SCH ×3 (06:10→21:58)
[2021-09-02 07:00] VITALS: BP 125/52
[2021-09-02] MEDS: INSULIN LISPRO 300 UNITS/3 ML VIAL. SQ SCH ×4 (07:30→21:00)
[2021-09-02] MEDS: COLLAGENASE 250 UNIT/GM TOPICAL OINTMENT 30GM TUBE. TP SCH (09:00)
[2021-09-02] MEDS: NYSTATIN TOPICAL POWDER 15GM BOTTLE. TP SCH ×2 (09:00→21:57)
[2021-09-02] MEDS: MULTIVITAMIN with MINERAL TABLET. PO SCH (10:05)
[2021-09-02] MEDS: LACTOBACILLUS RHAMNOSUS GG 1 CAPSULE. PO SCH ×2 (10:05→21:54)
[2021-09-02] MEDS: traMADol 50 MG TABLET PO PRN (10:05)
[2021-09-02] MEDS: LINEZOLID 600 MG TABLET PO SCH ×2 (10:05→21:54)
[2021-09-02 11:00] VITALS: BP 150/71
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
[2021-09-02 15:00] VITALS: BP 137/65
[2021-09-02] MEDS: MICAFUNGIN 100 MG in IV DEXTROSE 5% 100ML 100 ML IV SCH (17:44)
[2021-09-02 19:30] VITALS: BP 158/52
[2021-09-02 23:43] VITALS: BP 128/57
[2021-09-03] MEDS: AMPICILLIN/SULBACTAM 3 GM in IV NORMAL SALINE 100ML 100 ML IV SCH ×4 (00:32→17:57)
[2021-09-03 03:19] VITALS: BP 125/59
[2021-09-03] MEDS: HEPARIN for SUB-Q USE 5,000 UNIT/ML VIAL. SQ SCH ×3 (06:16→19:53)
[2021-09-03 07:00] VITALS: BP 129/56
[2021-09-03] MEDS: INSULIN LISPRO 300 UNITS/3 ML VIAL. SQ SCH ×4 (07:30→21:00)
[2021-09-03] MEDS: COLLAGENASE 250 UNIT/GM TOPICAL OINTMENT 30GM TUBE. TP SCH (09:00)
[2021-09-03] MEDS: MULTIVITAMIN with MINERAL TABLET. PO SCH (09:06)
[2021-09-03] MEDS: LINEZOLID 600 MG TABLET PO SCH ×2 (09:06→19:55)
[2021-09-03] MEDS: LACTOBACILLUS RHAMNOSUS GG 1 CAPSULE. PO SCH ×2 (09:06→19:54)
[2021-09-03] MEDS: NYSTATIN TOPICAL POWDER 15GM BOTTLE. TP SCH ×2 (09:07→21:00)
[2021-09-03 10:44] VITALS: BP 129/53
[2021-09-03] MEDS: diphenhydrAMINE HCL 25 MG CAPSULE PO PRN (10:53)
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
--- NOTE | 2021-09-03 11:21 | PDOC ---
Infectious Disease Note Subjective Subjective Patient is feeling good ROS ROS no n/v/d/ Vital Sign Vital Signs Vital Signs Date Time Temp Pulse Resp B/P (MAP) Pulse Ox O2 Delivery O2 Flow Rate FiO2 09/03/21 10:44 98.1 83 16 129/53 (78) 96 Nasal Cannula 2.0 98.1 Physical Exam PHYSICAL EXAM GENERAL: Alert, oriented x 3 female, on nasal O2, in no acute distress. HEENT: Normocephalic, atraumatic. Anicteric. LUNGS: Clear. HEART: S1, S2. No murmurs. ABDOMEN: Soft, obese. Bowel sounds present. EXTREMITIES: Redness, excoriation, left hip previous wound well healed. Left gluteal ulcer, unstageable with black eschar, tenderness present. Lower extremity wounds pictures reviewed. NEUROLOGIC: Alert, oriented x 3, grossly nonfocal. Generalized weakness. PSYCHIATRIC: Depressed, not anxious, calm, cooperative. Labs Lab Laboratory Tests Test 09/02/21 12:49 09/02/21 17:03 09/02/21 20:41 09/03/21 07:26 Glucose (Fingerstick) 118 mg/dL (70-99) 98 mg/dL (70-99) 146 mg/dL (70-99) 120 mg/dL (70-99) Micro Microbiology 08/27/21 Blood Culture - Final, Complete NO GROWTH AFTER 5 DAYS 08/27/21 Urine Culture - Final, Complete Objective Assessment 1. Gluteal ulcer likely pressure from inability to get off the floor for 3 days prior to admission, status postdebridement by wound team August 29, 2021 2. Increased CK. Likely from laying on the floor 3 days prior to admission 3. Healed left hip wound 4. Chronic indwelling Chadwick changed with urinary tract infection. 5. The patient had a tick when she arrived to the hospital, which was removed. 6. Obesity. 7. Transaminitis. 8. Diabetes. 9. Protein-calorie malnutrition. 10. Poor living condition. 11. Leukocytosis. Plan Plan of Care Continue Unasyn,Zyvox,micafungin DC IV Vanco due to high trough She does not have any evidence of tickborne illness at this time clinically Offload. Wound care as directed by wound team. Monitor labs and cultures. Continue supportive care. soon to change to po , ok to d/c to SNF CHIRAG HICKS MD September 03, 2021 11:21
[2021-09-03 14:59] VITALS: BP 126/59
[2021-09-03] MEDS: MICAFUNGIN 100 MG in IV DEXTROSE 5% 100ML 100 ML IV SCH (16:04)
[2021-09-03 19:00] VITALS: BP 137/59
[2021-09-04] MEDS: AMPICILLIN/SULBACTAM 3 GM in IV NORMAL SALINE 100ML 100 ML IV SCH ×3 (01:34→12:24)
[2021-09-04] MEDS: HEPARIN for SUB-Q USE 5,000 UNIT/ML VIAL. SQ SCH ×3 (06:00→22:59)
[2021-09-04 07:00] VITALS: BP 135/54
[2021-09-04] MEDS: INSULIN LISPRO 300 UNITS/3 ML VIAL. SQ SCH ×4 (07:30→21:00)
[2021-09-04] MEDS: MULTIVITAMIN with MINERAL TABLET. PO SCH (07:57)
[2021-09-04] MEDS: ACETAMINOPHEN 325 MG TABLET. PO PRN (07:57)
[2021-09-04] MEDS: LINEZOLID 600 MG TABLET PO SCH ×2 (07:57→20:25)
[2021-09-04] MEDS: LACTOBACILLUS RHAMNOSUS GG 1 CAPSULE. PO SCH ×2 (07:57→20:25)
[2021-09-04] MEDS: diphenhydrAMINE HCL 25 MG CAPSULE PO PRN (07:57)
[2021-09-04] MEDS: NYSTATIN TOPICAL POWDER 15GM BOTTLE. TP SCH ×2 (09:00→21:00)
[2021-09-04] MEDS: COLLAGENASE 250 UNIT/GM TOPICAL OINTMENT 30GM TUBE. TP SCH (09:00)
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
[2021-09-04 11:00] VITALS: BP 159/73
--- NOTE | 2021-09-04 13:04 | PDOC ---
Infectious Disease Note Subjective Subjective Patient is feeling good ROS ROS No nausea vomiting diarrhea chest pain shortness of breath Vital Sign Vital Signs Vital Signs Date Time Temp Pulse Resp B/P (MAP) Pulse Ox O2 Delivery O2 Flow Rate FiO2 09/04/21 11:00 98.3 74 19 159/73 (101) 93 Nasal Cannula 2.0 98.3 Physical Exam PHYSICAL EXAM GENERAL: Alert, oriented x 3 female, on nasal O2, in no acute distress. HEENT: Normocephalic, atraumatic. Anicteric. LUNGS: Clear. HEART: S1, S2. No murmurs. ABDOMEN: Soft, obese. Bowel sounds present. EXTREMITIES: Redness, excoriation, left hip previous wound well healed. Left gluteal ulcer, unstageable with black eschar, tenderness present. Lower extremity wounds pictures reviewed. NEUROLOGIC: Alert, oriented x 3, grossly nonfocal. Generalized weakness. PSYCHIATRIC: Depressed, not anxious, calm, cooperative. Labs Lab Laboratory Tests Test 09/03/21 16:35 09/03/21 20:47 09/04/21 07:42 09/04/21 12:08 Glucose (Fingerstick) 139 mg/dL (70-99) 155 mg/dL (70-99) 99 mg/dL (70-99) 99 mg/dL (70-99) Micro Microbiology 08/27/21 Blood Culture - Final, Complete NO GROWTH AFTER 5 DAYS 08/27/21 Urine Culture - Final, Complete Objective Assessment 1. Gluteal ulcer likely pressure from inability to get off the floor for 3 days prior to admission, status postdebridement by wound team August 29, 2021 2. Increased CK. Likely from laying on the floor 3 days prior to admission 3. Healed left hip wound 4. Chronic indwelling Chadwick changed with urinary tract infection. 5. The patient had a tick when she arrived to the hospital, which was removed. 6. Obesity. 7. Transaminitis. 8. Diabetes. 9. Protein-calorie malnutrition. 10. Poor living condition. 11. Leukocytosis. Plan Plan of Care Change antibiotics to p.o. antibiotics She does not have any evidence of tickborne illness at this time clinically Offload. Wound care as directed by wound team. Monitor labs and cultures. Continue supportive care. ok to d/c to [facility] CHIRAG HICKS MD September 04, 2021 13:04
--- NOTE | 2021-09-04 14:16 | NUR ---
Wound/Ostomy Care Wound Type/Assessment: The Patient seen again to today with our consulting physician Dr. Lieberman for assessment and bedside debridement of the left ischium. Wound blackened with soften eschar but appears to be stable, there is a large area of IAD due to urine that is resolving. Patient agreeable, consent signed. Patient tolerated procedure well. Patient has a stage III PU to left ischium and a stage II to the right ischium. All other wounds are resolved. Treatment Recommendations/Plan: Left Ischium- Cleanse with saline or water only. Santyl, vaseline gauze, ABD and tape applied. Change daily. Right Ischium- apply skin prep and hydrocolloid, change every 2 days and as needed. Education provided: Patient educated on dressing changes and PU treatment and management. Patient verbalized understanding Offloading surface/device: Patient is currently on a P-500 bed, turn every two hours using wedge. Recommended Referrals/Tests: Wound care and ID following. Dr. Lieberman will continue to follow Discharge Recommendations for dressings: Continue current treatment plan
[2021-09-04 15:00] VITALS: BP 118/64
[2021-09-04 19:00] VITALS: BP 140/68
[2021-09-04] MEDS: AMOXICILLIN/K CLAV 875/125MG TABLET. PO SCH (20:25)
[2021-09-04 23:00] VITALS: BP 125/48
[2021-09-05 03:00] VITALS: BP 143/68
[2021-09-05] MEDS: diphenhydrAMINE HCL 25 MG CAPSULE PO PRN ×2 (04:32→14:45)
[2021-09-05] MEDS: HEPARIN for SUB-Q USE 5,000 UNIT/ML VIAL. SQ SCH ×3 (06:21→21:27)
[2021-09-05 07:00] VITALS: BP 120/51
[2021-09-05] MEDS: INSULIN LISPRO 300 UNITS/3 ML VIAL. SQ SCH ×4 (07:30→21:23)
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
[2021-09-05] MEDS: MULTIVITAMIN with MINERAL TABLET. PO SCH (08:32)
[2021-09-05] MEDS: AMOXICILLIN/K CLAV 875/125MG TABLET. PO SCH ×2 (08:32→21:23)
[2021-09-05] MEDS: LACTOBACILLUS RHAMNOSUS GG 1 CAPSULE. PO SCH ×2 (08:33→21:23)
[2021-09-05] MEDS: LINEZOLID 600 MG TABLET PO SCH ×2 (08:33→21:23)
[2021-09-05] MEDS: COLLAGENASE 250 UNIT/GM TOPICAL OINTMENT 30GM TUBE. TP SCH (09:00)
[2021-09-05] MEDS: NYSTATIN TOPICAL POWDER 15GM BOTTLE. TP SCH ×2 (09:53→21:24)
--- NOTE | 2021-09-05 10:02 | PDOC ---
Progress Note-Wound Care SUBJECTIVE 09/04/2021: Patient reports modest local discomfort. We are following up in unstageable left buttock pressure ulcer which appears to be breaking down under Santyl and becoming increasingly wet. It is likely appropriate for debridement at this time. OBJECTIVE Vital Signs Vital Signs Date Time Temp Pulse Resp B/P (MAP) Pulse Ox O2 Delivery O2 Flow Rate FiO2 09/04/21 07:00 97.9 88 19 135/54 (81) 93 Nasal Cannula 2.0 97.9 Vital Signs Date Time Temp Pulse Resp B/P (MAP) Pulse Ox O2 Delivery O2 Flow Rate FiO2 09/05/21 07:00 98.1 80 16 120/51 (74) 93 Nasal Cannula 2.0 98.1 Physical Exam: Patient alert and cooperative. Her vital signs are stable. She is afebrile. She is seen, and examined and debrided in the bed. ASSESSMENT Unstageable pressure ulcer left buttock, L 89.320 ROS ROS: Patient alert and cooperative and nondistressed. She reports no respiratory complaints at this time. She denies change in bowel or bladder habit. WOUND Location of Modifier: Left Wound Location: Posterior Body Site: Buttocks Associated Signs/Symptoms: None Drainage Amount: Minimal Drainage Description: Sanguineous, Creamy Odor: None/Absent Surrounding Tissue Appearance: no redness,swelling Wound Description: SQ Bone/Muscle/Tendon Exposed: No Stage: Unstageable Length cm.: 12.3 Width cm.: 11.2 Wound Depth cm.: 0.2 Tunneling: Absent Wound Undermining (CM): 0 Granulation % 20 Hypergranulation % 0 Fibrin % 20 Eschar % 60 Improvement: No Visible Change PLAN Anticipate debridement to unroofed soft/wet necrotic tissue and continue Santyl application. FOLLOW-UP See orders. We will continue to follow along. Surgical Debridement #1 Start Time: 09/04/2021 at 1433 End Time: 09/04/2021 at 1457 Time Out Completed: Time Out Procedure: Verify 2 pt. Identifiers Wound Location: Left buttock Tissue Removed: Non-Viable, Slough, Necrotic, Devitalized, Bioburden Method of Debridement: Scapel Depth of Debridement: Skin, SQ Bleeding: Minimal Hemostasis Achieved: Pressure Pain Level: Pain ___/10 2 Post Debridement Measurement: Length cm.: 12.3 Width cm.: 11.2 Wound Depth cm.: 0.4 ROSIE MILLS DO September 05, 2021 10:02
[2021-09-05 11:00] VITALS: BP 130/58
--- NOTE | 2021-09-05 12:02 | NUR ---
Dressing was changed by night guard prior to this nurse arriving
--- NOTE | 2021-09-05 13:15 | PDOC ---
Infectious Disease Note Subjective Subjective Patient is feeling good ROS ROS no n/v/d/ Vital Sign Vital Signs Vital Signs Date Time Temp Pulse Resp B/P (MAP) Pulse Ox O2 Delivery O2 Flow Rate FiO2 09/05/21 11:00 98.4 82 16 130/58 (82) 96 Nasal Cannula 2.0 98.4 Physical Exam PHYSICAL EXAM GENERAL: Alert, oriented x 3 female, on nasal O2, in no acute distress. HEENT: Normocephalic, atraumatic. Anicteric. LUNGS: Clear. HEART: S1, S2. No murmurs. ABDOMEN: Soft, obese. Bowel sounds present. EXTREMITIES: Redness, excoriation, left hip previous wound well healed. Left gluteal ulcer, unstageable with black eschar, tenderness present. Lower extremity wounds pictures reviewed. NEUROLOGIC: Alert, oriented x 3, grossly nonfocal. Generalized weakness. PSYCHIATRIC: Depressed, not anxious, calm, cooperative. Labs Lab Laboratory Tests Test 09/04/21 17:13 09/04/21 21:14 09/05/21 07:38 09/05/21 12:12 Glucose (Fingerstick) 119 mg/dL (70-99) 126 mg/dL (70-99) 108 mg/dL (70-99) 113 mg/dL (70-99) Micro Microbiology 08/27/21 Blood Culture - Final, Complete NO GROWTH AFTER 5 DAYS 08/27/21 Urine Culture - Final, Complete Objective Assessment 1. Gluteal ulcer likely pressure from inability to get off the floor for 3 days prior to admission, status postdebridement by wound team August 29, 2021 2. Increased CK. Likely from laying on the floor 3 days prior to admission 3. Healed left hip wound 4. Chronic indwelling Chadwick changed with urinary tract infection. 5. The patient had a tick when she arrived to the hospital, which was removed. 6. Obesity. 7. Transaminitis. 8. Diabetes. 9. Protein-calorie malnutrition. 10. Poor living condition. 11. Leukocytosis. Plan Plan of Care Change antibiotics to p.o. antibiotics She does not have any evidence of tickborne illness at this time clinically Offload. Wound care as directed by wound team. Monitor labs and cultures. Continue supportive care. d/c cv line ok to d/c to SNF CHIRAG HICKS MD September 05, 2021 13:15
[2021-09-05] MEDS: traMADol 50 MG TABLET PO PRN (14:48)
[2021-09-05 15:00] VITALS: BP 128/50
[2021-09-05 19:00] VITALS: BP 124/68
[2021-09-05 23:00] VITALS: BP 120/67
[2021-09-06] VITALS (7 sets, daily range): BP systolic 108–151; BP diastolic 39–73
[2021-09-06] MEDS: HEPARIN for SUB-Q USE 5,000 UNIT/ML VIAL. SQ SCH ×3 (06:23→22:57)
[2021-09-06] MEDS: INSULIN LISPRO 300 UNITS/3 ML VIAL. SQ SCH ×4 (07:30→21:00)
[2021-09-06] MEDS: MULTIVITAMIN with MINERAL TABLET. PO SCH (09:22)
[2021-09-06] MEDS: LINEZOLID 600 MG TABLET PO SCH ×2 (09:22→21:10)
[2021-09-06] MEDS: LACTOBACILLUS RHAMNOSUS GG 1 CAPSULE. PO SCH ×2 (09:22→21:10)
[2021-09-06] MEDS: AMOXICILLIN/K CLAV 875/125MG TABLET. PO SCH ×2 (09:22→21:10)
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
[2021-09-06] MEDS: traMADol 50 MG TABLET PO PRN (10:22)
[2021-09-06] MEDS: diphenhydrAMINE HCL 25 MG CAPSULE PO PRN (10:22)
[2021-09-06] MEDS: NYSTATIN TOPICAL POWDER 15GM BOTTLE. TP SCH ×2 (10:23→21:11)
[2021-09-06] MEDS: COLLAGENASE 250 UNIT/GM TOPICAL OINTMENT 30GM TUBE. TP SCH (10:25)
--- NOTE | 2021-09-06 13:32 | PDOC ---
Infectious Disease Note Subjective Subjective Patient is feeling good ROS ROS no n/v/d/sob Vital Sign Vital Signs Vital Signs Date Time Temp Pulse Resp B/P (MAP) Pulse Ox O2 Delivery O2 Flow Rate FiO2 09/06/21 11:00 97.5 87 18 145/73 (97) 95 Room Air 97.5 09/05/21 23:00 2.0 Physical Exam PHYSICAL EXAM GENERAL: Alert, oriented x 3 female, on nasal O2, in no acute distress. HEENT: Normocephalic, atraumatic. Anicteric. LUNGS: Clear. HEART: S1, S2. No murmurs. ABDOMEN: Soft, obese. Bowel sounds present. EXTREMITIES: Redness, excoriation, left hip previous wound well healed. Left gluteal ulcer, unstageable with black eschar, tenderness present. Lower extremity wounds pictures reviewed. NEUROLOGIC: Alert, oriented x 3, grossly nonfocal. Generalized weakness. PSYCHIATRIC: Depressed, not anxious, calm, cooperative. Labs Lab Laboratory Tests Test 09/05/21 16:45 09/05/21 21:07 09/06/21 07:33 09/06/21 11:44 Glucose (Fingerstick) 140 mg/dL (70-99) 148 mg/dL (70-99) 107 mg/dL (70-99) 118 mg/dL (70-99) Micro Microbiology 08/27/21 Blood Culture - Final, Complete NO GROWTH AFTER 5 DAYS 08/27/21 Urine Culture - Final, Complete Objective Assessment 1. Gluteal ulcer likely pressure from inability to get off the floor for 3 days prior to admission, status postdebridement by wound team August 29, 2021 2. Increased CK. Likely from laying on the floor 3 days prior to admission 3. Healed left hip wound 4. Chronic indwelling Chadwick changed with urinary tract infection. 5. The patient had a tick when she arrived to the hospital, which was removed. 6. Obesity. 7. Transaminitis. 8. Diabetes. 9. Protein-calorie malnutrition. 10. Poor living condition. 11. Leukocytosis. Plan Plan of Care p.o. antibiotics She does not have any evidence of tickborne illness at this time clinically Offload. Wound care as directed by wound team. Monitor labs and cultures. Continue supportive care. ok to d/c to [facility] CHIRAG HICKS MD September 06, 2021 13:32
[2021-09-07 03:21] VITALS: BP 132/43
[2021-09-07] MEDS: HEPARIN for SUB-Q USE 5,000 UNIT/ML VIAL. SQ SCH ×3 (06:29→21:43)
[2021-09-07 07:12] VITALS: BP 146/61
[2021-09-07] MEDS: INSULIN LISPRO 300 UNITS/3 ML VIAL. SQ SCH ×4 (07:30→21:00)
[2021-09-07] MEDS: AMOXICILLIN/K CLAV 875/125MG TABLET. PO SCH ×2 (09:00→21:38)
[2021-09-07] MEDS: LACTOBACILLUS RHAMNOSUS GG 1 CAPSULE. PO SCH ×2 (09:00→21:38)
[2021-09-07] MEDS: MULTIVITAMIN with MINERAL TABLET. PO SCH (09:00)
[2021-09-07] MEDS: LINEZOLID 600 MG TABLET PO SCH ×2 (09:00→21:38)
[2021-09-07] MEDS: NYSTATIN TOPICAL POWDER 15GM BOTTLE. TP SCH ×2 (09:01→21:00)
[2021-09-07] MEDS: COLLAGENASE 250 UNIT/GM TOPICAL OINTMENT 30GM TUBE. TP SCH (09:01)
--- NOTE | 2021-09-07 09:31 | PDOC ---
Infectious Disease Note Subjective Subjective Patient is feeling good ROS ROS No nausea vomiting diarrhea Vital Sign Vital Signs Vital Signs Date Time Temp Pulse Resp B/P (MAP) Pulse Ox O2 Delivery O2 Flow Rate FiO2 09/07/21 07:12 98.2 80 16 146/61 (89) 97 Nasal Cannula 2.0 98.2 Physical Exam PHYSICAL EXAM GENERAL: Alert, oriented x 3 female, on nasal O2, in no acute distress. HEENT: Normocephalic, atraumatic. Anicteric. LUNGS: Clear. HEART: S1, S2. No murmurs. ABDOMEN: Soft, obese. Bowel sounds present. EXTREMITIES: Redness, excoriation, left hip previous wound well healed. Left gluteal ulcer, unstageable with black eschar, tenderness present. Lower extremity wounds pictures reviewed. NEUROLOGIC: Alert, oriented x 3, grossly nonfocal. Generalized weakness. PSYCHIATRIC: Depressed, not anxious, calm, cooperative. Labs Lab Laboratory Tests Test 09/06/21 11:44 09/06/21 17:03 09/06/21 20:45 09/07/21 08:06 Glucose (Fingerstick) 118 mg/dL (70-99) 92 mg/dL (70-99) 147 mg/dL (70-99) 98 mg/dL (70-99) Micro Microbiology 08/27/21 Blood Culture - Final, Complete NO GROWTH AFTER 5 DAYS 08/27/21 Urine Culture - Final, Complete Objective Assessment 1. Gluteal ulcer likely pressure from inability to get off the floor for 3 days prior to admission, status postdebridement by wound team August 29, 2021 2. Increased CK. Likely from laying on the floor 3 days prior to admission 3. Healed left hip wound 4. Chronic indwelling Chadwick changed with urinary tract infection. 5. The patient had a tick when she arrived to the hospital, which was removed. 6. Obesity. 7. Transaminitis. 8. Diabetes. 9. Protein-calorie malnutrition. 10. Poor living condition. 11. Leukocytosis. Plan Plan of Care p.o. antibiotics She does not have any evidence of tickborne illness at this time clinically Offload. Wound care as directed by wound team. Wound seen not bad superficial wound just needs to stay off of it Monitor labs and cultures. Continue supportive care. ok to d/c to [facility] CHIRAG HICKS MD September 07, 2021 09:31
[2021-09-07] MEDS: diphenhydrAMINE HCL 25 MG CAPSULE PO PRN ×2 (10:07→17:08)
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
[2021-09-07] MEDS: FLUoxetine HCL 20 MG CAPSULE PO SCH (11:00)
[2021-09-07 11:31] VITALS: BP 142/62
[2021-09-07 15:30] VITALS: BP 140/64
[2021-09-07] MEDS: traMADol 50 MG TABLET PO PRN (15:37)
[2021-09-07 19:00] VITALS: BP 155/61
[2021-09-07 23:17] VITALS: BP 123/68
[2021-09-08 03:00] VITALS: BP 111/53
[2021-09-08] MEDS: HEPARIN for SUB-Q USE 5,000 UNIT/ML VIAL. SQ SCH ×3 (06:03→21:36)
[2021-09-08 07:00] VITALS: BP 120/61
[2021-09-08] MEDS: INSULIN LISPRO 300 UNITS/3 ML VIAL. SQ SCH ×4 (07:30→21:00)
[2021-09-08] MEDS: LINEZOLID 600 MG TABLET PO SCH ×2 (08:00→21:30)
[2021-09-08] MEDS: diphenhydrAMINE HCL 25 MG CAPSULE PO PRN (08:00)
[2021-09-08] MEDS: FLUoxetine HCL 20 MG CAPSULE PO SCH (08:00)
[2021-09-08] MEDS: LACTOBACILLUS RHAMNOSUS GG 1 CAPSULE. PO SCH ×2 (08:00→21:30)
[2021-09-08] MEDS: MULTIVITAMIN with MINERAL TABLET. PO SCH (08:00)
[2021-09-08] MEDS: AMOXICILLIN/K CLAV 875/125MG TABLET. PO SCH ×2 (08:00→21:30)
[2021-09-08] MEDS: COLLAGENASE 250 UNIT/GM TOPICAL OINTMENT 30GM TUBE. TP SCH (09:00)
[2021-09-08] MEDS: NYSTATIN TOPICAL POWDER 15GM BOTTLE. TP SCH ×2 (09:00→21:30)
[2021-09-08 11:00] VITALS: BP 121/66
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
[2021-09-08 15:00] VITALS: BP 131/59
[2021-09-08 19:00] VITALS: BP 116/50
[2021-09-08 23:00] VITALS: BP 143/62
[2021-09-09 03:00] VITALS: BP 143/61
[2021-09-09] MEDS: HEPARIN for SUB-Q USE 5,000 UNIT/ML VIAL. SQ SCH ×3 (06:46→20:43)
[2021-09-09 07:00] VITALS: BP 142/48
[2021-09-09] MEDS: INSULIN LISPRO 300 UNITS/3 ML VIAL. SQ SCH ×4 (07:30→21:00)
[2021-09-09] MEDS: AMOXICILLIN/K CLAV 875/125MG TABLET. PO SCH ×2 (08:52→20:41)
[2021-09-09] MEDS: LINEZOLID 600 MG TABLET PO SCH ×2 (08:52→20:41)
[2021-09-09] MEDS: LACTOBACILLUS RHAMNOSUS GG 1 CAPSULE. PO SCH ×2 (08:52→20:41)
[2021-09-09] MEDS: MULTIVITAMIN with MINERAL TABLET. PO SCH (08:53)
[2021-09-09] MEDS: FLUoxetine HCL 20 MG CAPSULE PO SCH (08:53)
[2021-09-09] MEDS: COLLAGENASE 250 UNIT/GM TOPICAL OINTMENT 30GM TUBE. TP SCH (09:00)
[2021-09-09] MEDS: NYSTATIN TOPICAL POWDER 15GM BOTTLE. TP SCH ×2 (09:00→21:20)
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
[2021-09-09 11:00] VITALS: BP 144/50
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
--- NOTE | 2021-09-09 14:44 | NUR ---
Patient tearful, crying upon entering room. Patient states she is very sad that "people do what they want from me. They dont ask if they can." Patient asked if RN could do pictures. Patient cried harder and whispered " do what ever you want to me." RN told patient another attempt to take pictures and complete dressing change would be done at another time.
[2021-09-09 15:00] VITALS: BP 130/62
[2021-09-09 19:00] VITALS: BP 120/55
[2021-09-09 23:00] VITALS: BP 119/96
[2021-09-10 03:00] VITALS: BP 133/70
[2021-09-10] MEDS: HEPARIN for SUB-Q USE 5,000 UNIT/ML VIAL. SQ SCH ×3 (06:23→22:33)
[2021-09-10 07:00] VITALS: BP 146/90
[2021-09-10] MEDS: INSULIN LISPRO 300 UNITS/3 ML VIAL. SQ SCH ×4 (07:30→21:00)
[2021-09-10] MEDS: NYSTATIN TOPICAL POWDER 15GM BOTTLE. TP SCH ×2 (08:40→21:00)
[2021-09-10] MEDS: LINEZOLID 600 MG TABLET PO SCH ×2 (08:40→21:04)
[2021-09-10] MEDS: diphenhydrAMINE HCL 25 MG CAPSULE PO PRN (08:40)
[2021-09-10] MEDS: AMOXICILLIN/K CLAV 875/125MG TABLET. PO SCH ×2 (08:40→21:04)
[2021-09-10] MEDS: LACTOBACILLUS RHAMNOSUS GG 1 CAPSULE. PO SCH ×2 (08:40→21:04)
[2021-09-10] MEDS: MULTIVITAMIN with MINERAL TABLET. PO SCH (08:40)
[2021-09-10] MEDS: FLUoxetine HCL 20 MG CAPSULE PO SCH (08:40)
[2021-09-10] MEDS: COLLAGENASE 250 UNIT/GM TOPICAL OINTMENT 30GM TUBE. TP SCH (09:00)
[2021-09-10 11:07] VITALS: BP 137/78
--- NOTE | 2021-09-10 12:59 | NUR ---
Patient refusing dressing change at this time. Addendum: 09/10/21 at 1441 by KALEY WIGGINS RN RN Amended: Links added.
--- NOTE | 2021-09-10 13:03 | PDOC ---
Infectious Disease Note Subjective Subjective Patient is feeling good Vital Sign Vital Signs Vital Signs Date Time Temp Pulse Resp B/P (MAP) Pulse Ox O2 Delivery O2 Flow Rate FiO2 09/10/21 11:07 96.8 83 18 137/78 (97) 95 Nasal Cannula 2.0 96.8 Physical Exam PHYSICAL EXAM GENERAL: Alert, oriented x 3 female, on nasal O2, in no acute distress. HEENT: Normocephalic, atraumatic. Anicteric. LUNGS: Clear. HEART: S1, S2. No murmurs. ABDOMEN: Soft, obese. Bowel sounds present. EXTREMITIES: Redness, excoriation, left hip previous wound well healed. Left gluteal ulcer, unstageable with black eschar, tenderness present. Lower extremity wounds pictures reviewed. NEUROLOGIC: Alert, oriented x 3, grossly nonfocal. Generalized weakness. PSYCHIATRIC: Depressed, not anxious, calm, cooperative. Labs Lab Laboratory Tests Test 09/09/21 17:06 09/09/21 20:25 09/10/21 08:14 09/10/21 11:31 Glucose (Fingerstick) 143 mg/dL (70-99) 181 mg/dL (70-99) 130 mg/dL (70-99) 123 mg/dL (70-99) Micro Microbiology 08/27/21 Blood Culture - Final, Complete NO GROWTH AFTER 5 DAYS 08/27/21 Urine Culture - Final, Complete Objective Assessment 1. Gluteal ulcer likely pressure from inability to get off the floor for 3 days prior to admission, status postdebridement by wound team August 29, 2021 2. Increased CK. Likely from laying on the floor 3 days prior to admission 3. Healed left hip wound 4. Chronic indwelling Chadwick changed with urinary tract infection. 5. The patient had a tick when she arrived to the hospital, which was removed. 6. Obesity. 7. Transaminitis. 8. Diabetes. 9. Protein-calorie malnutrition. 10. Poor living condition. 11. Leukocytosis. Plan Plan of Care p.o. antibiotics She does not have any evidence of tickborne illness at this time clinically Offload. Wound care as directed by wound team. Wound seen not bad superficial wound just needs to stay off of it Monitor labs and cultures. Continue supportive care. ok to d/c to [facility] CHIRAG HICKS MD September 10, 2021 13:03
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
[2021-09-10 15:00] VITALS: BP 123/62
[2021-09-10 19:00] VITALS: BP 125/69
[2021-09-10 23:00] VITALS: BP 110/62
[2021-09-11 03:00] VITALS: BP 127/56
[2021-09-11] MEDS: HEPARIN for SUB-Q USE 5,000 UNIT/ML VIAL. SQ SCH ×3 (06:14→22:24)
[2021-09-11 07:00] VITALS: BP 126/43
[2021-09-11] MEDS: INSULIN LISPRO 300 UNITS/3 ML VIAL. SQ SCH ×4 (07:30→21:00)
[2021-09-11] MEDS: NYSTATIN TOPICAL POWDER 15GM BOTTLE. TP SCH ×2 (09:00→22:22)
[2021-09-11] MEDS: COLLAGENASE 250 UNIT/GM TOPICAL OINTMENT 30GM TUBE. TP SCH (09:00)
[2021-09-11] MEDS: LINEZOLID 600 MG TABLET PO SCH ×2 (09:01→22:20)
[2021-09-11] MEDS: AMOXICILLIN/K CLAV 875/125MG TABLET. PO SCH ×2 (09:01→22:20)
[2021-09-11] MEDS: MULTIVITAMIN with MINERAL TABLET. PO SCH (09:01)
[2021-09-11] MEDS: FLUoxetine HCL 20 MG CAPSULE PO SCH (09:01)
[2021-09-11] MEDS: LACTOBACILLUS RHAMNOSUS GG 1 CAPSULE. PO SCH ×2 (09:01→22:20)
[2021-09-11 11:00] VITALS: BP 140/47
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
--- NOTE | 2021-09-11 13:14 | PDOC ---
Infectious Disease Note Subjective Subjective Patient is feeling good Vital Sign Vital Signs Vital Signs Date Time Temp Pulse Resp B/P (MAP) Pulse Ox O2 Delivery O2 Flow Rate FiO2 09/11/21 11:00 98.4 87 18 140/47 (78) 91 Nasal Cannula 2.0 98.4 Physical Exam PHYSICAL EXAM GENERAL: Alert, oriented x 3 female, on nasal O2, in no acute distress. HEENT: Normocephalic, atraumatic. Anicteric. LUNGS: Clear. HEART: S1, S2. No murmurs. ABDOMEN: Soft, obese. Bowel sounds present. EXTREMITIES: Redness, excoriation, left hip previous wound well healed. Left gluteal ulcer, unstageable with black eschar, tenderness present. Lower extremity wounds pictures reviewed. NEUROLOGIC: Alert, oriented x 3, grossly nonfocal. Generalized weakness. PSYCHIATRIC: Depressed, not anxious, calm, cooperative. Labs Lab Laboratory Tests Test 09/10/21 13:40 09/10/21 13:41 Coronavirus (COVID-19)(PCR) Not detected (NOT DETECTD) SARS-CoV-2 Antigen (Rapid) Negative (NEGATIVE) Micro Microbiology 08/27/21 Blood Culture - Final, Complete NO GROWTH AFTER 5 DAYS 08/27/21 Urine Culture - Final, Complete Objective Assessment 1. Gluteal ulcer likely pressure from inability to get off the floor for 3 days prior to admission, status postdebridement by wound team August 29, 2021 2. Increased CK. Likely from laying on the floor 3 days prior to admission 3. Healed left hip wound 4. Chronic indwelling Chadwick changed with urinary tract infection. 5. The patient had a tick when she arrived to the hospital, which was removed. 6. Obesity. 7. Transaminitis. 8. Diabetes. 9. Protein-calorie malnutrition. 10. Poor living condition. 11. Leukocytosis. Plan Plan of Care p.o. antibiotics She does not have any evidence of tickborne illness at this time clinically Offload. Wound care as directed by wound team. Wound seen not bad superficial wound just needs to stay off of it Monitor labs and cultures. Continue supportive care. ok to d/c to SNF CHIRAG HICKS MD September 11, 2021 13:14
[2021-09-11 15:00] VITALS: BP 129/57
--- NOTE | 2021-09-11 16:06 | NUR ---
Wound/Ostomy Care Wound Type/Assessment: Patient seen per wound care for follow up for left ischium and right ischium. the left ischium Wound is blackened with soften eschar but appears to be stable and has improved, there is a large area of IAD due to urine that is resolving and has greatly improved since last week. Patient tolerated procedure well. Patient has a stage III PU to left ischium and a stage II to the right ischium. All other wounds are resolved. Treatment Recommendations/Plan: Left Ischium- Cleanse with saline or water only. Santyl, vaseline gauze, ABD and tape applied. Change daily. Right Ischium- apply barrier cream BID and PRN change every 2 days and as needed. Education provided: Patient educated on dressing changes and PU treatment and management. Patient verbalized understanding Offloading surface/device: Patient is currently on a P-500 bed, turn every two hours using wedge. Recommended Referrals/Tests: Wound care and ID following. Discharge Recommendations for dressings: Continue current treatment plan. Patient repositioned to right side using wedge. No other wounds noted. Bed lowered and call light in reach. Wound care 09/19/21.
[2021-09-11 19:30] VITALS: BP 149/74
[2021-09-11 23:36] VITALS: BP 159/75
[2021-09-12 02:51] VITALS: BP 164/68
[2021-09-12] MEDS: HEPARIN for SUB-Q USE 5,000 UNIT/ML VIAL. SQ SCH ×3 (06:00→22:42)
[2021-09-12 07:00] VITALS: BP 129/57
[2021-09-12] MEDS: INSULIN LISPRO 300 UNITS/3 ML VIAL. SQ SCH ×4 (07:30→21:00)
[2021-09-12] MEDS: MULTIVITAMIN with MINERAL TABLET. PO SCH (09:16)
[2021-09-12] MEDS: LACTOBACILLUS RHAMNOSUS GG 1 CAPSULE. PO SCH ×2 (09:16→22:22)
[2021-09-12] MEDS: FLUoxetine HCL 20 MG CAPSULE PO SCH (09:16)
[2021-09-12] MEDS: AMOXICILLIN/K CLAV 875/125MG TABLET. PO SCH ×2 (09:16→22:22)
[2021-09-12] MEDS: LINEZOLID 600 MG TABLET PO SCH ×2 (09:16→22:22)
--- NOTE | 2021-09-12 09:59 | NUR ---
0915 head to toe assessment done at this time due to patient resting at 0800.
[2021-09-12] MEDS: ACETAMINOPHEN 325 MG TABLET. PO PRN (10:44)
[2021-09-12] MEDS: COLLAGENASE 250 UNIT/GM TOPICAL OINTMENT 30GM TUBE. TP SCH (10:49)
[2021-09-12] MEDS: NYSTATIN TOPICAL POWDER 15GM BOTTLE. TP SCH ×2 (10:50→22:23)
[2021-09-12 11:00] VITALS: BP 138/63
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
--- NOTE | 2021-09-12 13:24 | PDOC ---
Infectious Disease Note Subjective Subjective Patient is feeling good SANDOVAL NICK walked Vital Sign Vital Signs Vital Signs Date Time Temp Pulse Resp B/P (MAP) Pulse Ox O2 Delivery O2 Flow Rate FiO2 09/12/21 11:00 98.1 78 16 138/63 (88) 98 Nasal Cannula 2.0 98.1 Physical Exam PHYSICAL EXAM GENERAL: Alert, oriented x 3 female, on nasal O2, in no acute distress. HEENT: Normocephalic, atraumatic. Anicteric. LUNGS: Clear. HEART: S1, S2. No murmurs. ABDOMEN: Soft, obese. Bowel sounds present. EXTREMITIES: Redness, excoriation, left hip previous wound well healed. Left gluteal ulcer, unstageable with black eschar, tenderness present. Lower extremity wounds pictures reviewed. NEUROLOGIC: Alert, oriented x 3, grossly nonfocal. Generalized weakness. PSYCHIATRIC: Depressed, not anxious, calm, cooperative. Labs Micro Microbiology 08/27/21 Blood Culture - Final, Complete NO GROWTH AFTER 5 DAYS 08/27/21 Urine Culture - Final, Complete Objective Assessment 1. Gluteal ulcer likely pressure from inability to get off the floor for 3 days prior to admission, status postdebridement by wound team August 29, 2021 2. Increased CK. Likely from laying on the floor 3 days prior to admission 3. Healed left hip wound 4. Chronic indwelling Chadwick changed with urinary tract infection. 5. The patient had a tick when she arrived to the hospital, which was removed. 6. Obesity. 7. Transaminitis. 8. Diabetes. 9. Protein-calorie malnutrition. 10. Poor living condition. 11. Leukocytosis. Plan Plan of Care p.o. antibiotics She does not have any evidence of tickborne illness at this time clinically Offload. Wound care as directed by wound team. Wound seen not bad superficial wound just needs to stay off of it Monitor labs and cultures. Continue supportive care. ok to d/c to [facility] CHIRAG HICKS MD September 12, 2021 13:24
[2021-09-12 15:00] VITALS: BP 120/55
--- NOTE | 2021-09-12 17:43 | NUR ---
spoke with Dr. Adame regarding accu checks reporrted to be discontinued. Dr. Adame advised to continue AC/HS accuchecks.
--- NOTE | 2021-09-12 18:05 | NUR ---
Received a call from Patti with [facility] regarding patient discharge status. Brief report given and contact information for Alysia, conference planner, so Patti can reach her tomorrow. Patti thanked RN for information.
[2021-09-12 19:00] VITALS: BP 150/66
[2021-09-12] MEDS: diphenhydrAMINE HCL 25 MG CAPSULE PO PRN (22:42)
[2021-09-12 23:00] VITALS: BP 124/55
[2021-09-13 03:00] VITALS: BP 127/58
[2021-09-13] MEDS: HEPARIN for SUB-Q USE 5,000 UNIT/ML VIAL. SQ SCH ×3 (06:09→21:34)
[2021-09-13 07:00] VITALS: BP 146/60
[2021-09-13] MEDS: INSULIN LISPRO 300 UNITS/3 ML VIAL. SQ SCH ×4 (07:30→21:00)
--- NOTE | 2021-09-13 07:40 | NUR ---
Patient refusing accuchecks. Reports " Dr. Nguyen told me I didn't have to do those anymore. After this on I'm done." Education provided to patient regarding disease process and need for intervention. Voiced understanding.
[2021-09-13] MEDS: AMOXICILLIN/K CLAV 875/125MG TABLET. PO SCH ×2 (08:03→21:33)
[2021-09-13] MEDS: LINEZOLID 600 MG TABLET PO SCH ×2 (08:03→21:33)
[2021-09-13] MEDS: LACTOBACILLUS RHAMNOSUS GG 1 CAPSULE. PO SCH ×2 (08:03→21:33)
[2021-09-13] MEDS: MULTIVITAMIN with MINERAL TABLET. PO SCH (08:03)
[2021-09-13] MEDS: FLUoxetine HCL 20 MG CAPSULE PO SCH (08:03)
[2021-09-13] MEDS: COLLAGENASE 250 UNIT/GM TOPICAL OINTMENT 30GM TUBE. TP SCH (08:04)
[2021-09-13] MEDS: NYSTATIN TOPICAL POWDER 15GM BOTTLE. TP SCH ×2 (08:04→21:34)
[2021-09-13] MEDS ORDERED: ONDANSETRON ODT 4 MG TAB.RAPDIS. PO PRN (10:30)
[2021-09-13] MEDS: traMADol 50 MG TABLET PO PRN (10:34)
[2021-09-13 11:00] VITALS: BP 153/72
--- NOTE | 2021-09-13 11:30 | NUR ---
patient refused accucheck
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
--- NOTE | 2021-09-13 12:35 | PDOC ---
Infectious Disease Note Subjective Subjective Patient is feeling good ROS ROS No nausea vomiting diarrhea Vital Sign Vital Signs Vital Signs Date Time Temp Pulse Resp B/P (MAP) Pulse Ox O2 Delivery O2 Flow Rate FiO2 09/13/21 11:07 16 09/13/21 10:34 92 Nasal Cannula 2.0 09/13/21 07:00 97.6 81 146/60 (88) 97.6 Physical Exam PHYSICAL EXAM GENERAL: Alert, oriented x 3 female, on nasal O2, in no acute distress. HEENT: Normocephalic, atraumatic. Anicteric. LUNGS: Clear. HEART: S1, S2. No murmurs. ABDOMEN: Soft, obese. Bowel sounds present. EXTREMITIES: Redness, excoriation, left hip previous wound well healed. Left gluteal ulcer, unstageable with black eschar, tenderness present. Lower extremity wounds pictures reviewed. NEUROLOGIC: Alert, oriented x 3, grossly nonfocal. Generalized weakness. PSYCHIATRIC: Depressed, not anxious, calm, cooperative. Labs Lab Laboratory Tests Test 09/12/21 17:58 09/13/21 07:40 Glucose (Fingerstick) 154 mg/dL (70-99) 135 mg/dL (70-99) Micro Microbiology 08/27/21 Blood Culture - Final, Complete NO GROWTH AFTER 5 DAYS 08/27/21 Urine Culture - Final, Complete Objective Assessment 1. Gluteal ulcer likely pressure from inability to get off the floor for 3 days prior to admission, status postdebridement by wound team August 29, 2021 2. Increased CK. Likely from laying on the floor 3 days prior to admission 3. Healed left hip wound 4. Chronic indwelling Chadwick changed with urinary tract infection. 5. The patient had a tick when she arrived to the hospital, which was removed. 6. Obesity. 7. Transaminitis. 8. Diabetes. 9. Protein-calorie malnutrition. 10. Poor living condition. 11. Leukocytosis. Plan Plan of Care p.o. antibiotics She does not have any evidence of tickborne illness at this time clinically Offload. Wound care as directed by wound team. Wound seen not bad superficial wound just needs to stay off of it Monitor labs and cultures. Continue supportive care. ok to d/c to SNF CHIRAG HICKS MD September 13, 2021 12:35
[2021-09-13 15:00] VITALS: BP 140/67
[2021-09-13] MEDS: metFORMIN 500 MG TABLET PO SCH (17:11)
[2021-09-13 19:00] VITALS: BP 160/82
[2021-09-13 23:00] VITALS: BP 105/72
[2021-09-14 03:00] VITALS: BP 123/47
--- NOTE | 2021-09-14 04:40 | NUR ---
Pt still refusing HS accuchecks. Pt stated "they started me on metformin, Dr. Nguyen said I don't have to do my finger checks anymore." Pt educated more on the importance of checking blood sugars regularly. Pt then stated "I know, but I did not have to do these until I came here." Will continue to provide education.
[2021-09-14] MEDS: HEPARIN for SUB-Q USE 5,000 UNIT/ML VIAL. SQ SCH ×3 (05:53→21:56)
[2021-09-14 07:00] VITALS: BP 140/43
[2021-09-14] MEDS: INSULIN LISPRO 300 UNITS/3 ML VIAL. SQ SCH ×4 (07:30→21:00)
[2021-09-14] MEDS: LINEZOLID 600 MG TABLET PO SCH ×2 (08:31→21:51)
[2021-09-14] MEDS: MULTIVITAMIN with MINERAL TABLET. PO SCH (08:31)
[2021-09-14] MEDS: LACTOBACILLUS RHAMNOSUS GG 1 CAPSULE. PO SCH ×2 (08:31→21:51)
[2021-09-14] MEDS: metFORMIN 500 MG TABLET PO SCH ×2 (08:32→17:08)
[2021-09-14] MEDS: AMOXICILLIN/K CLAV 875/125MG TABLET. PO SCH ×2 (08:32→21:51)
[2021-09-14] MEDS: NYSTATIN TOPICAL POWDER 15GM BOTTLE. TP SCH ×3 (08:32→21:52)
[2021-09-14] MEDS: FLUoxetine HCL 20 MG CAPSULE PO SCH (08:32)
[2021-09-14 10:57] VITALS: BP 123/57
[2021-09-14] MEDS: COLLAGENASE 250 UNIT/GM TOPICAL OINTMENT 30GM TUBE. TP SCH (11:59)
[2021-09-14] MEDS ORDERED: NYST15PO2 TP (12:32)
[2021-09-14] MEDS ORDERED: LINE600T12 PO (12:32)
[2021-09-14] MEDS ORDERED: METF500T16 PO (12:32)
[2021-09-14] MEDS ORDERED: AMOX1TAB11 PO (12:32)
[2021-09-14] MEDS ORDERED: FLUO20CA22 PO (12:32)
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
[2021-09-14 15:00] VITALS: BP 106/65
[2021-09-14 19:00] VITALS: BP 112/61
[2021-09-14 23:00] VITALS: BP 140/71
[2021-09-15] MEDS: HEPARIN for SUB-Q USE 5,000 UNIT/ML VIAL. SQ SCH (06:36)
[2021-09-15 07:00] VITALS: BP 137/66
[2021-09-15] MEDS: INSULIN LISPRO 300 UNITS/3 ML VIAL. SQ SCH (07:30)
[2021-09-15] MEDS: AMOXICILLIN/K CLAV 875/125MG TABLET. PO SCH (08:27)
[2021-09-15] MEDS: MULTIVITAMIN with MINERAL TABLET. PO SCH (08:27)
[2021-09-15] MEDS: LINEZOLID 600 MG TABLET PO SCH (08:27)
[2021-09-15] MEDS: metFORMIN 500 MG TABLET PO SCH (08:27)
[2021-09-15] MEDS: LACTOBACILLUS RHAMNOSUS GG 1 CAPSULE. PO SCH (08:27)
[2021-09-15] MEDS: FLUoxetine HCL 20 MG CAPSULE PO SCH (08:27)
[2021-09-15] MEDS: NYSTATIN TOPICAL POWDER 15GM BOTTLE. TP SCH (08:28)
[2021-09-15] MEDS: COLLAGENASE 250 UNIT/GM TOPICAL OINTMENT 30GM TUBE. TP SCH (08:28)
--- NOTE | 2021-09-15 08:40 | NUR ---
Pt. to transfer for [facility], report called to Liya.
--- NOTE | 2021-09-15 09:20 | NUR ---
Pt. discharge to [facility] via stretcher per transport service. All belongings with pt.
--- NOTE | 2021-09-18 13:11 | PDOC3 ---
[facility]-Discharge Summary Date of Admission: Date of Admission: August 27, 2021 Date of Discharge: Date of Discharge: September 15, 2021 Discharge Diagnosis: Discharge Diagnosis: Found down after 3 days( defecated on herself) Unable to walk Unable to care for herself Gluteal ulcer Chronic indwelling [place] She had a tick when she arrived to the hospital on her that was removed SIRS Obesity Transaminase as Diabetic Protein calorie malnutrition Hospital Course: Hospital Course: 09/14/21 No acute events overnight. Patient seen examined bedside. No concerns from nursing. Plan for discharge in the next 24 hours to [facility]. Patient's chart, labs, images were reviewed and discussed with RN 09/13/2021 No acute events overnight. Patient seen examined bedside. Some nausea vomiting this morning. Required Zofran. Tolerating diet otherwise no other meals. Still pending SNF placement at [facility]. Patient's chart, labs, images were reviewed and discussed with RN 09/12/2021 No acute events overnight. Patient seen examined bedside. No concerns from nursing. Patient resting comfortably. Tolerating diet. Patient's chart, labs, images were reviewed and discussed with RN 09/12/2019 No acute events overnight. Patient seen examined bedside. Pending SNF placement. Patient's chart, labs, images were reviewed and discussed with RN 09/10/2021 No acute events overnight. Patient seen examined bedside. Patient with bed sheets overhead and resting comfortably. Does not have any new rashes today. Continue with p.o. antibiotics per ID. Pending SNF placement. Patient's chart, labs, images were reviewed and discussed with RN 09/09/2021 Patient seen and examined She was resting with no apparent distress She awoke easily States the Prozac is helping her depression and anxiety Chart reviewed Discussed with RN We are still awaiting transfer to a residential facility within 50 miles of [facility] (Case management is working on it) 09/08/2021 Patient seen and examined Discussed with RN Chart reviewed We are still awaiting transfer to a residential facility near [facility] 09/07/2021 Patient seen and examined Nurses dressing her wounds Discussed with RN Discussed with case management Chart reviewed Patient complains of severe anxiety she is tearful at times She agrees to try Prozac 20 mg a day 09/06/2021 Patient seen and examined Discussed with RN Chart reviewed Discussed with case management We are awaiting discharge to residential somewhere near [facility] (hopefully within 50 miles of [place]) 09/05/2021 Patient seen and examined Discussed with RN Chart reviewed Still awaiting discharge disposition 09/04/2021 Patient seen exam She is resting with no apparent stress Discussed with case management Discussed with RN Chart reviewed We are awaiting discharge to skilled 09/03/2021 Patient seen and examined Discussed with RN Discussed with case management Chart reviewed We are awaiting discharge to long-term care or skilled nurse 09/02/2021 Patient seen and examined Resting with NAD Discussed with RN Chart reviewed 09/01/2021 Patient seen and examined Resting with NAD Discussed with RN Chart reviewed 08/31/2021 Patient seen and examined Discussed with RN Chart reviewed She is slowly getting better Skin much filter screen cleaner She is a little more energetic Discussed with case management We are awaiting long-term care place 08/30/2021 Patient seen and examined exam discussed with RN Chart reviewed Discussed with case management We are awaiting long-term care placement or residential unit arrangements 08/30/2019 Patient seen and examined She is more alert today Discussed with RN Discussed with case management Chart reviewed 08/28/2021 Patient seen and examined She is resting with no apparent distress Appears poorly kept Her feet are very dirty Discussed with case management Discussed with RN Chart reviewed 66yo female with PMHx morbid obesity and progressive ambulatory difficulties and recent hospital stay with left hip wound and sacral wound who comes from her sister's home via EMS. Patient states she has been on the floor at her sisters house for 3 days unable to get up and defecated on herself and did not empty her hassan catheter bag. Per nursing staff a tick was removed from abdominal wall prior to my examination. No rash at bite site noted According to patient she recently moved from [place], [place] at the end of 2020, where she was being treated for above wounds at [facility] and notes she asked her sister to take her out of the SNF to stay with her in July and she was admitted, unable to care for herself and recommended SNF and returned home into the care of her sister Chest radiograph with mild interstitial opacities, CT head and neck with no acute hemorrhage, CT spine with no acute fractures. Labs with WBC 15.2, Hb 13.4, platelets 345, CK 866, Cr 1.1, albumin 1.8 Disposition: Disposition/Orders: D/C to Home Activity: Activity: Resume previous activity Diet: Diet: Cardiac Medications: Home Meds Active Scripts Nystatin (NYAMYC) 15 Gm Powder, 1 ADIEL TP BID for fungal infection for 30 Days, #30 MISC 2 Refills Prov:MARGOT ALVARENGA MD 09/14/21 Metformin Hcl (METFORMIN HCL) 500 Mg Tablet, 500 MG PO BIDWMEALS for diabetes for 90 Days, #180 TAB 2 Refills Prov:MARGOT ALVARENGA MD 09/14/21 Fluoxetine Hcl (FLUOXETINE HCL) 20 Mg Capsule, 20 MG PO DAILY for depression for 60 Days, #60 CAP 2 Refills Prov:MARGOT ALVARENGA MD 09/14/21 Linezolid (ZYVOX) 600 Mg Tablet, 600 MG PO BID for wond infection for 5 Days, #10 TAB Prov:MARGOT ALVARENGA MD 09/14/21 Amoxicillin/Potassium Clav (AMOX TR-K CLV 875-125 MG TAB) 1 Each Tablet, 1 TAB PO BID for wound infection for 5 Days, #10 TAB Prov:MARGOT ALVARENGA MD 09/14/21 Scheduled Amoxicillin/Potassium Clav (Amox Tr-K Clv 875-125 Mg Tab), 1 TAB PO BID Fluoxetine Hcl (Fluoxetine Hcl), 20 MG PO DAILY Linezolid (Zyvox), 600 MG PO BID Metformin Hcl (Metformin Hcl), 500 MG PO BIDWMEALS Nystatin (Nyamyc), 1 ADIEL TP BID Total Time: Total Time: Total time spent was 33 minutes in preparing scripts, discharge planning with SWI and RN and preparing this discharge summary Patient seen and examined on day of discharge. No acute abnormal findings. Justicifation of Admission Dx: Justifications for Admission: Justification of Admission Dx: Yes Sepsis: Infection MARGOT ALVARENGA MD September 18, 2021 13:11
== END 2021-09-15 09:20 | DRG 853 ==
LOC: ER 16:01 → 4 NORTH 20:27
PROVIDERS: ADMIT Internal Medicine; ATTEND Internal Medicine
PROC: 0JB90ZZ Excision of Buttock Subcutaneous Tissue and Fascia, Open Approach (ICD-10-PCS; principal; 2021-08-28)
DX: A41.9 Sepsis, unspecified organism (principal); L89.303 Pressure ulcer of unspecified buttock, stage 3; L89.313 Pressure ulcer of right buttock, stage 3; E43 Unspecified severe protein-calorie malnutrition; T76.01XA Adult neglect or abandonment, suspected, initial encounter; N39.0 Urinary tract infection, site not specified; Z68.41 Body mass index [BMI] 40.0-44.9, adult; L89.312 Pressure ulcer of right buttock, stage 2; L89.320 Pressure ulcer of left buttock, unstageable; E66.01 Morbid (severe) obesity due to excess calories; E86.0 Dehydration; Z20.822 Contact with and (suspected) exposure to COVID-19; E11.65 Type 2 diabetes mellitus with hyperglycemia; F32.A Depression, unspecified; F41.9 Anxiety disorder, unspecified; K75.81 Nonalcoholic steatohepatitis (NASH); L89.302 Pressure ulcer of unspecified buttock, stage 2; R32 Unspecified urinary incontinence; Z79.899 Other long term (current) drug therapy; Z82.49 Family history of ischemic heart disease and other diseases of the circulatory system
CPT/HCPCS: 36415; 70450; 71045; 72125; 72128; 72131; 80053; 80202; 80307; 81001; 82553; 82962; 83036; 83605; 83735; 83880; 84145; 84443; 84484; 85007; 85025; 85610; 85730; 87040; 87086; 87426; 93005; J0295; J1644; J1815; J2248; J3010; J3370; J7030; J7040; J7060; U0003; 97110-GO; 97110-GP; 97116-GP; 97530-GO; 97530-GP; 97535-GO; 99285-25; G0378; J0775; Q0163